=== PATIENT | male | born 1935 | race Native Hawaiian/Other Pacific Islander ===

== ENCOUNTER 2017-07-24 11:25 | Observation (INO) | payer MEDICARE ==
[2017-07-24 12:22] LABS: BASO % 0.2 % (0.0-2.0); EOS # 0.1 K/uL (0.0-0.7); EOS % 0.9 % (0.0-4.0); HEMOGLOBIN 15.4 g/dL (12.0-18.0); LYMPH # 0.5 K/uL (1.0-4.3); LYMPH % 5.6 % (20.0-40.0); MEAN CELL VOLUME 88.9 fL (80.0-94.0); MEAN CORPUSCULAR HEMOGLOBIN 31.5 pg (27.0-31.0); MEAN CORPUSCULAR HGB CONC 35.4 g/dL (33.0-37.0); MEAN PLATELET VOLUME 7.5 fL (7.2-11.7); MONO # 0.4 K/uL (0.0-0.8); MONO % 3.9 % (0.0-10.0); NEUT # 8.3 K/uL (1.8-7.0); NEUT % 89.4 % (50.0-75.0); PLATELET COUNT 318 K/uL (130-400); RED CELL DISTRIBUTION WIDTH 14.5 % (11.5-14.5); WHITE BLOOD COUNT 9.3 K/uL (4.8-10.8)
[2017-07-24 12:34] LABS: ALB/GLOB RATIO 1.3 (1.0-2.1); ALBUMIN 3.5 g/dL (3.5-5.0); CALCIUM 8.9 mg/dl (8.6-10.4)
[2017-07-24 12:37] LABS: INR 1.1; PROTHROMBIN TIME 12.5 SECONDS (9.7-12.2)
--- NOTE | 2017-07-24 12:48 | RAD ---
HISTORY: gen weakness COMPARISON: None available. TECHNIQUE: Chest, one view. FINDINGS: Examination limited by habitus. LUNGS: No focal consolidation. Please note that chest x-ray has limited sensitivity for the detection of pulmonary masses. PLEURA: No significant pleural effusion identified. No definite pneumothorax . CARDIOVASCULAR: Heart size appears within normal limits. OSSEOUS STRUCTURES: Degenerative changes. VISUALIZED UPPER ABDOMEN: Mild elevation of the right hemidiaphragm. OTHER FINDINGS: None. IMPRESSION: No focal consolidation, significant pleural effusion, or definite pneumothorax identified.
--- NOTE | 2017-07-24 12:59 | C.PDOC ---
History Of Present Illness Patient brought to ED for evaluation of generalized weakness for approx 1 week. Patient states he feels very fatigued/sleepy, is so weak he is having difficulty ambulating. He denies chest pain, SOB, abdominal pain, nausea/ vomiting/diarrhea, fever, cough. Patient does admit to chronic B/L LE swelling , [place] [facility] [place] had negative doppler for DVT. Time Seen by Provider: 07/24/17 11:26 Chief Complaint (Nursing): Weakness/Neurological Deficit History Per: Patient, Family History/Exam Limitations: no limitations Onset/Duration Of Symptoms: Days (1 week ) Past Medical History Reviewed: Historical Data, Nursing Documentation, Vital Signs Vital Signs: Last Vital Signs Temp 98 F 07/27/17 08:06 Pulse 59 L 07/27/17 08:06 Resp 20 07/27/17 08:06 BP 141/77 07/27/17 08:06 Pulse Ox 98 07/27/17 08:06 - Medical History PMH: HTN, Hypercholesterolemia, Peripheral Edema Family History: States: No Known Family Hx - Social History Hx Alcohol Use: No Hx Substance Use: No - Immunization History Hx Tetanus Toxoid Vaccination: No Hx Influenza Vaccination: No Hx Pneumococcal Vaccination: No Review Of Systems Except As Marked, All Systems Reviewed And Found Negative. Constitutional: Positive for: Weakness. Negative for: Fever, Chills Cardiovascular: Negative for: Chest Pain, Palpitations Respiratory: Negative for: Cough, Shortness of Breath Gastrointestinal: Negative for: Nausea, Vomiting, Abdominal Pain, Diarrhea Skin: Negative for: Rash Neurological: Negative for: Weakness (no focal weakness), Numbness, Incoordination, Headache, Dizziness Physical Exam - Physical Exam Appears: Well, Non-toxic, No Acute Distress, Other (appears fatigued ) Skin: Warm, Dry, Rash (scattered macular rash on chest, nonvesicular ) Head: Atraumatic, Normacephalic Eye(s): bilateral: Normal Inspection, PERRL, EOMI Oral Mucosa: Moist Cardiovascular: Rhythm Regular (tachycardic ) Respiratory: Normal Breath Sounds, No Rales, No Rhonchi, No Wheezing Gastrointestinal/Abdominal: Normal Exam, Bowel Sounds, Soft, No Tenderness Extremity: Pedal Edema (+2 pitting edema B/L LEs with darkened skin ), No Calf Tenderness, Capillary Refill (< 2 sec all digits ) Pulses: Left Dorsalis Pedis: Normal, Right Dorsalis Pedis: Normal Neurological/Psych: Oriented x3 ED Course And Treatment - Laboratory Results Result Diagrams: 07/24/17 12:16 07/25/17 07:30 ECG: Interpreted By Me, Viewed By Me (atrial flutter 155bpm with AV block, right axis deviation, Q waves II, III, aVF) ECG Interpretation: Abnormal O2 Sat by Pulse Oximetry: 95 (RA) Pulse Ox Interpretation: Normal - Other Rad CXR X-Ray: Viewed By Me, Read By Radiologist Interpretation: Accession No. : [id number]. Patient Name / ID : TORO CALLE / [id number]. Exam Date : 07/24/2017 12:16:54 ( Approved ). Study Comment : Sex / Age : M / 81Y. Creator : Hodan Tian MD. Dictator : Hodan Tian MD. Kitchen Aide : Forensic Anthropologist : Hodan Tian MD. Approver2 : Report Date : 07/24/2017 12:46:50. My Comment : . HISTORY: gen weakness. COMPARISON: None available. TECHNIQUE: Chest, one view. FINDINGS: Examination limited by habitus. LUNGS: No focal consolidation. Please note that chest x-ray has limited sensitivity for the detection of pulmonary masses. PLEURA: No significant pleural effusion identified. No definite pneumothorax . CARDIOVASCULAR: Heart size appears within normal limits. OSSEOUS STRUCTURES: Degenerative changes. VISUALIZED UPPER ABDOMEN: Mild elevation of the right hemidiaphragm. OTHER FINDINGS: None. IMPRESSION: No focal consolidation, significant pleural effusion, or definite pneumothorax identified. - CT Scan/US ct head Other Rad Studies (CT/US): Read By Radiologist, Radiology Report Reviewed CT/US Interpretation: Accession No. : [id number]. Patient Name / ID : TORO CALLE / [id number]. Exam Date : 07/24/2017 12:48:59 ( Approved ). Study Comment : Sex / Age : M / 81Y. Creator : Hodan Tian MD. Dictator : Hodan Tian MD. Kitchen Aide : Forensic Anthropologist : Hodan Tian MD. Approver2 : Report Date : 07/24/2017 13:04:36. My Comment : . PROCEDURE: CT HEAD WITHOUT CONTRAST. HISTORY: gen weakness. COMPARISON: None available. TECHNIQUE: Axial computed tomography images were obtained through the head/brain without intravenous contrast. Radiation dose: Total exam DLP = 953.22 mGy-cm. This CT exam was performed using one or more of the following dose reduction techniques: Automated exposure control, adjustment of the mA and/or kV according to patient size, and/or use of iterative reconstruction technique. FINDINGS: HEMORRHAGE: No intracranial hemorrhage. BRAIN: Diffuse atrophy with prominence of the ventricles and sulci noted. No mass effect or edema. Intracranial atherosclerosis. Scattered periventricular and subcortical white matter hypodensities, which are nonspecific, but often seen with chronic microvascular ischemic disease. Please note that MRI with diffusion imaging is more sensitive in the detection of acute ischemic event. VENTRICLES: No hydrocephalus. CALVARIUM: Unremarkable. PARANASAL SINUSES: Unremarkable as visualized. No significant inflammatory changes. MASTOID AIR CELLS: Unremarkable as visualized. No inflammatory changes. OTHER FINDINGS: None. IMPRESSION: Nonspecific white matter changes. Generalized atrophy. Progress Note: Blood work, EKG, CT head, UA, CXR ordered and reviewed. Patient given IV NS bolus, IV benadryl, IV digoxin (for atrial flutter with RVR + borderline BP). Heparin given for new onset atrial flutter. Reevaluation Time: 16:10 Reassessment Condition: Improved (Patient tachycadic again, appears to be going in and out of rapid atrial flutter - IV cardizem, PO cardizdem ordered.) - Physician Consult Information Physician Contacted: Vinod Núñez Outcome Of Conversation: Discussed patient with PMD, he confirms atrial flutter is new onset - agrees with admission and would like Dr. Tovar for cardiology ( consult entered). Critical Care Time - Critical Care Note Total Time (in mins): 40 Documented critical care: time excludes all time spent performing seperately billable procedures. Disposition - Disposition Disposition: HOSPITALIZED Disposition Time: 14:36 Condition: STABLE - Clinical Impression Clinical Impression: Atrial flutter with rapid ventricular response, Generalized weakness, Dehydration Decision To Admit - Pt Status Changed To: Hospital Disposition Of: Inpatient - Admit Certification Admit to Inpatient:: After my assessment, the patient will require hospitalization for at least two midnights. This is because of the severity of symptoms shown, intensity of services needed, and/or the medical risk in this patient being treated as an outpatient. - InPatient: Physician Admission Certification: I certify that this patient requires 2 or more midnights of care for the following reason:: see notes - . Bed Request Type: Telemetry Admitting Physician: Vinod Núñez Patient Diagnosis: Atrial flutter with rapid ventricular response, Dehydration, Generalized weakness
--- NOTE | 2017-07-24 13:06 | CT ---
PROCEDURE: CT HEAD WITHOUT CONTRAST. HISTORY: gen weakness COMPARISON: None available. TECHNIQUE: Axial computed tomography images were obtained through the head/brain without intravenous contrast. Radiation dose: Total exam DLP = 953.22 mGy-cm. This CT exam was performed using one or more of the following dose reduction techniques: Automated exposure control, adjustment of the mA and/or kV according to patient size, and/or use of iterative reconstruction technique. FINDINGS: HEMORRHAGE: No intracranial hemorrhage. BRAIN: Diffuse atrophy with prominence of the ventricles and sulci noted. No mass effect or edema. Intracranial atherosclerosis. Scattered periventricular and subcortical white matter hypodensities, which are nonspecific, but often seen with chronic microvascular ischemic disease. Please note that MRI with diffusion imaging is more sensitive in the detection of acute ischemic event. VENTRICLES: No hydrocephalus. CALVARIUM: Unremarkable. PARANASAL SINUSES: Unremarkable as visualized. No significant inflammatory changes. MASTOID AIR CELLS: Unremarkable as visualized. No inflammatory changes. OTHER FINDINGS: None. IMPRESSION: Nonspecific white matter changes. Generalized atrophy.
[2017-07-24 13:12] LABS: BANDS 6 % (0-2); EOSINOPHIL 2 % (0-4); LYMPHOCYTE 4 % (20-40); MONOCYTE 2 % (0-10); NEUTROPHIL 86 % (50-75); PLATELET ESTIMATE NORMAL (NORMAL); TOTAL CELLS COUNTED 100
[2017-07-24 13:13] LABS: ANISOCYTOSIS SLIGHT
[2017-07-24] MEDS ORDERED: DiphenhydrAMINE 50 mg/ml Inj IVP STA (13:13)
[2017-07-24] MEDS ORDERED: Sodium Chloride 0.9% 500 ML IV ONE ×2 (13:13→13:20)
[2017-07-24 13:14] LABS: HYPOCHROMIC SLIGHT; POLYCHROMIC SLIGHT
[2017-07-24] MEDS ORDERED: DiphenhydrAMINE 50 mg/ml Inj ONE (13:20)
[2017-07-24 13:22] LABS: CK-MB 2.04 ng/mL (0.0-3.38); TROPONIN I 0.096 ng/mL (0.00-0.120)
[2017-07-24] MEDS ORDERED: Digoxin 500 mcg/2ml (0.5 mg/2ml) Inj IVP STA (14:18)
[2017-07-24 14:21] LABS: URINE BILIRUBIN NEGATIVE (NEGATIVE); URINE BLOOD 1+ (NEGATIVE); URINE CLARITY Clear (Clear); URINE COLOR Yellow (YELLOW); URINE GLUCOSE (UA) NORMAL (Normal); URINE LEUKOCYTE ESTERASE NEG Leu/uL (Negative); URINE PROTEIN NEGATIVE (NEGATIVE); URINE UROBILINOGEN NORMAL mg/dL (0.2-1.0)
[2017-07-24] MEDS ORDERED: Digoxin 500 mcg/2ml (0.5 mg/2ml) Inj ONE (15:02)
[2017-07-24 15:15] VITALS: PULSE 115
--- NOTE | 2017-07-24 19:22 | CP.PCM.CON ---
History of Present Illness - History of Present Illness History of Present Illness: 81 years old [place] male complaining of generalized weakness for the past one week, with vague chest pain. He was found in the ED to have an atrial flutter with 2:1 AV conduction, was given Cardizem IV, Digoxin IV and placed on Metoprolol PO. He is now in a regular sinus rhythm with a first degree AV block on the big data admin. He denies any SOB, palpitation. He is known to have a HPTN, a s/p prostatic cancer, a s/p nephritis 40 years ago. He denies any cigarette smoking, any alcohol abuse, any family history of heart disease. He is allergic to PNC and Tetracycline which gave him a rash in the past. A CT scan of the head was negative for mass, or bleeding. A CXR shows no acute infiltrate. A venous duplex scan of the lower extremities did not reveal any acute DVT. 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.) - MUSCULOSKELETAL/RHEUMATOLOGICAL Hx Osteoarthritis: Yes (left hip and left knee) Hx Unsteady Gait: Yes - GENITOURINARY/GYNECOLOGICAL Hx Prostate Cancer: Yes - PSYCHIATRIC Hx Substance Use: No - SURGICAL HISTORY Hx Surgeries: Yes Hx Appendectomy: Yes Other/Comment: Prostate implant Meds Allergies/Adverse Reactions: Allergies Allergy/AdvReac Type Severity Reaction Status Date / Time Penicillins Allergy Intermediate Verified 07/24/17 11:32 tetracycline Allergy Intermediate Verified 07/24/17 11:32 - Medications Medications: Current Medications Enoxaparin Sodium (Lovenox) 60 mg SC Q12 [facility] Metoprolol Tartrate (Lopressor) 50 mg PO BID [facility] Last Admin: 07/24/17 17:41 Dose: 50 mg Moxifloxacin HCl (Avelox) 400 mg PO DAILY [facility] Last Admin: 07/24/17 17:41 Dose: 400 mg Physical Exam - Constitutional Appears: No Acute Distress, Chronically Ill - Eye Exam Eye Exam: Normal appearance - ENT Exam ENT Exam: Normal Exam - Neck Exam Neck exam: Positive for: Normal Inspection - Respiratory Exam Respiratory Exam: Clear to Auscultation Bilateral, NORMAL BREATHING PATTERN - Cardiovascular Exam Cardiovascular Exam: REGULAR RHYTHM, Systolic Murmur - GI/Abdominal Exam GI & Abdominal Exam: Normal Bowel Sounds, Soft - Rectal Exam Rectal Exam: Deferred - Exam Exam: NORMAL INSPECTION - Extremities Exam Additional comments: Right lower leg mild edema. - Back Exam Back exam: NORMAL INSPECTION - Neurological Exam Neurological exam: Alert, CN II-XII Intact, Oriented x3 - Psychiatric Exam Psychiatric exam: Anxious - Skin Skin Exam: Dry, Intact, Normal Color, Warm Results - Vital Signs Recent Vital Signs: Last Vital Signs Temp 97.8 F 07/24/17 17:42 Pulse 84 07/24/17 17:42 Resp 18 07/24/17 17:42 BP 141/73 07/24/17 17:42 Pulse Ox 100 07/24/17 17:42 - Labs Result Diagrams: 07/24/17 12:16 07/24/17 12:16 Labs: Laboratory Results - last 24 hr 07/24/17 07/24/17 07/24/17 11:45 12:16 12:16 WBC 9.3 RBC 4.90 Hgb 15.4 Hct 43.5 MCV 88.9 MCH 31.5 H MCHC 35.4 RDW 14.5 Plt Count 318 MPV 7.5 Neut % (Auto) 89.4 H Lymph % (Auto) 5.6 L [place] % (Auto) 3.9 Eos % (Auto) 0.9 Baso % (Auto) 0.2 Neut # 8.3 H Lymph # 0.5 L [place] # 0.4 Eos # 0.1 Baso # 0.0 Neutrophils % (Manual) 86 H Band Neutrophils % 6 H Lymphocytes % (Manual) 4 L Monocytes % (Manual) 2 Eosinophils % (Manual) 2 Platelet Estimate Normal Polychromasia Slight Hypochromasia (manual) Slight Anisocytosis (manual) Slight PT INR APTT Sodium 128 L Potassium 4.3 Chloride 94 L Carbon Dioxide 28 Anion Gap 10 BUN 21 H Creatinine 1.8 H Est GFR ( Amer) 44 Est GFR (Non-Af Amer) 36 POC Glucose (mg/dL) 147 H Random Glucose 146 H Calcium 8.9 Total Bilirubin 1.8 H AST 36 ALT 29 Alkaline Phosphatase 40 Total Creatine Kinase 67 CK-MB (Mass) 2.04 Troponin I 0.0960 Total Protein 6.3 Albumin 3.5 Globulin 2.8 Albumin/Globulin Ratio 1.3 Urine Color Urine Clarity Urine pH Ur Specific [place] Urine Protein Urine Glucose (UA) Urine Ketones Urine Blood Urine Nitrate Urine Bilirubin Urine Urobilinogen Ur Leukocyte Esterase Urine WBC (Auto) Urine RBC (Auto) 07/24/17 07/24/17 12:24 14:12 WBC RBC Hgb Hct MCV MCH MCHC RDW Plt Count MPV Neut % (Auto) Lymph % (Auto) [place] % (Auto) Eos % (Auto) Baso % (Auto) Neut # Lymph # [place] # Eos # Baso # Neutrophils % (Manual) Band Neutrophils % Lymphocytes % (Manual) Monocytes % (Manual) Eosinophils % (Manual) Platelet Estimate Polychromasia Hypochromasia (manual) Anisocytosis (manual) PT 12.5 H INR 1.1 APTT 32 Sodium Potassium Chloride Carbon Dioxide Anion Gap BUN Creatinine Est GFR ( Amer) Est GFR (Non-Af Amer) POC Glucose (mg/dL) Random Glucose Calcium Total Bilirubin AST ALT Alkaline Phosphatase Total Creatine Kinase CK-MB (Mass) Troponin I Total Protein Albumin Globulin Albumin/Globulin Ratio Urine Color Yellow Urine Clarity Clear Urine pH 6.0 Ur Specific [place] 1.003 Urine Protein Negative Urine Glucose (UA) Normal Urine Ketones Negative Urine Blood 1+ H Urine Nitrate Negative Urine Bilirubin Negative Urine Urobilinogen Normal Ur Leukocyte Esterase Neg Urine WBC (Auto) < 1 Urine RBC (Auto) 1 Assessment & Plan (1) Paroxysmal atrial flutter Assessment and Plan: To continue Metoprolol and Lovenox. Will check thyroid profile and order an echocardiogram. Status: Acute
[2017-07-24] MEDS: Enoxaparin 60 mg Syringe SC SCH (21:26)
[2017-07-25] MEDS ORDERED: DiphenhydrAMINE 12.5 mg/5 ml LIQ UD (5 ml) PO ONE (00:16)
[2017-07-25 08:01] LABS: ALB/GLOB RATIO 1.2 (1.0-2.1); ALBUMIN 3.3 g/dL (3.5-5.0); ALT/SGPT 33 U/L (21-72); AST/SGOT 26 U/L (17-59); BLOOD UREA NITROGEN 20 mg/dL (9-20); CALCIUM 8.6 mg/dl (8.6-10.4); GFR AFRICAN-AMERICAN > 60; GFR NON-AFRICAN AMERICAN 53
[2017-07-25 08:16] LABS: FREE T4 1.13 ng/dL (0.78-2.19)
[2017-07-25 08:20] LABS: B-TYPE NATRIURETIC PEPTIDE 551 pg/mL (0-900)
[2017-07-25] MEDS: Enoxaparin 60 mg Syringe SC SCH ×2 (10:38→21:22)
--- NOTE | 2017-07-25 13:48 | CP.PCM.HP ---
History of Present Illness - History of Present Illness History of Present Illness: CC: weakness HPI: 81 y/o male seen in ER c/o weakness and feeeling sick. EKG suggestive of atrial flutter. Seen by Cardiology Dr. Tovar. Delia santiago. No fever. NO SOB. No chestpain. Present on Admission - Present on Admission Any Indicators Present on Admission: Yes History of DVT/PE: No History of Uncontrolled Diabetes: No Urinary Catheter: No Decubitus Ulcer Present: No Review of Systems - Constitutional Constitutional: Weakness - EENT Eyes: Blurred Vision Ears: Abnormal Hearing Nose/Mouth/Throat: absent: Nasal Congestion - Cardiovascular Cardiovascular: absent: Chest Pain - Respiratory Respiratory: absent: Dyspnea on Exertion - Gastrointestinal Gastrointestinal: absent: Abdominal Pain - Genitourinary Genitourinary: Change in Urinary Stream - Musculoskeletal Musculoskeletal: Joint Swelling - Integumentary Integumentary: Dry Skin Past Patient History - Infectious Disease Hx of Infectious Diseases: None - Tetanus Immunizations Tetanus Immunization: Unknown - Past Medical History & Family History Past Medical History?: Yes - Past Social History Smoking Status: Never Smoked Alcohol: Occasional Drugs: Denies Home Situation {Lives}: With Family Domestic Violence: Negative - CARDIAC Hx Hypercholesterolemia: Yes Hx Hypertension: Yes Hx Peripheral Edema: Yes - PULMONARY Hx Respiratory Disorders: No - NEUROLOGICAL Hx Neurological Disorder: No - HEENT Hx HEENT Problems: No - RENAL Other/Comment: Hx of nephritis - ENDOCRINE/METABOLIC Hx Endocrine Disorders: No - HEMATOLOGICAL/ONCOLOGICAL Hx Cancer: Yes ( 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.) - INTEGUMENTARY Hx Dermatological Problems: No - MUSCULOSKELETAL/RHEUMATOLOGICAL Hx Osteoarthritis: Yes (left hip and left knee) Hx Unsteady Gait: Yes - GASTROINTESTINAL Hx Gastrointestinal Disorders: No - GENITOURINARY/GYNECOLOGICAL Hx Prostate Cancer: Yes - PSYCHIATRIC Hx Substance Use: No - SURGICAL HISTORY Hx Surgeries: Yes Hx Appendectomy: Yes Other/Comment: Prostate implant - ANESTHESIA Hx Anesthesia: No Meds Allergies/Adverse Reactions: Allergies Allergy/AdvReac Type Severity Reaction Status Date / Time Penicillins Allergy Intermediate Verified 07/24/17 11:32 tetracycline Allergy Intermediate Verified 07/24/17 11:32 Physical Exam - Constitutional Appears: Chronically Ill - Head Exam Head Exam: NORMAL INSPECTION - Eye Exam Eye Exam: Normal appearance Pupil Exam: NORMAL ACCOMODATION - ENT Exam ENT Exam: Normal Exam - Neck Exam Neck exam: Positive for: Normal Inspection - Respiratory Exam Respiratory Exam: NORMAL BREATHING PATTERN - Cardiovascular Exam Cardiovascular Exam: REGULAR RHYTHM - GI/Abdominal Exam GI & Abdominal Exam: Soft - Rectal Exam Rectal Exam: Deferred - Extremities Exam Extremities exam: Positive for: tenderness - Neurological Exam Neurological exam: Alert Results - Vital Signs Recent Vital Signs: Last Vital Signs Temp 97.4 F L 07/25/17 07:30 Pulse 72 07/25/17 07:30 Resp 20 07/25/17 07:30 BP 129/69 07/25/17 07:30 Pulse Ox 99 07/25/17 07:30 - Labs Result Diagrams: 07/24/17 12:16 07/25/17 07:30 Labs: Laboratory Results - last 24 hr 07/24/17 07/24/17 07/25/17 11:45 14:12 07:30 Sodium 134 Potassium 4.1 Chloride 100 Carbon Dioxide 28 Anion Gap 10 BUN 20 Creatinine 1.3 Est GFR ( Amer) > 60 Est GFR (Non-Af Amer) 53 POC Glucose (mg/dL) 147 H Random Glucose 93 Calcium 8.6 Total Bilirubin 0.8 AST 26 ALT 33 Alkaline Phosphatase 38 Troponin I 0.1630 H* NT-Pro-B Natriuret Pep 551 Total Protein 6.0 L Albumin 3.3 L Globulin 2.7 Albumin/Globulin Ratio 1.2 Prostate Specific Ag 0.075 Free T4 TSH 3rd Generation Urine Color Yellow Urine Clarity Clear Urine pH 6.0 Ur Specific [place] 1.003 Urine Protein Negative Urine Glucose (UA) Normal Urine Ketones Negative Urine Blood 1+ H Urine Nitrate Negative Urine Bilirubin Negative Urine Urobilinogen Normal Ur Leukocyte Esterase Neg Urine WBC (Auto) < 1 Urine RBC (Auto) 1 Digoxin 07/25/17 07/25/17 07:30 07:30 Sodium Potassium Chloride Carbon Dioxide Anion Gap BUN Creatinine Est GFR ( Amer) Est GFR (Non-Af Amer) POC Glucose (mg/dL) Random Glucose Calcium Total Bilirubin AST ALT Alkaline Phosphatase Troponin I NT-Pro-B Natriuret Pep Total Protein Albumin Globulin Albumin/Globulin Ratio Prostate Specific Ag Free T4 1.13 TSH 3rd Generation 1.10 Urine Color Urine Clarity Urine pH Ur Specific [place] Urine Protein Urine Glucose (UA) Urine Ketones Urine Blood Urine Nitrate Urine Bilirubin Urine Urobilinogen Ur Leukocyte Esterase Urine WBC (Auto) Urine RBC (Auto) Digoxin 0.8 - EKG Data EKG Interpreted by: ER Physician Assessment & Plan (1) Atrial flutter Status: Acute (2) HTN (hypertension) Status: Chronic (3) Arthritis, hip Status: Chronic - Assessment and Plan (Free Text) Assessment: A?P: Continue medication. Check ECHO. Appreciate Cardiology notes.
[2017-07-25] MEDS ORDERED: Oxycodone/Acetaminophen 5/325 mg Tab PO PRN (14:45)
[2017-07-25 17:56] LABS: CK-MB 3.01 ng/mL (0.0-3.38); TROPONIN I 0.123 ng/mL (0.00-0.120)
[2017-07-25] MEDS ORDERED: DiphenhydrAMINE 50 mg/ml Inj IVP STA (23:56)
[2017-07-26] MEDS ORDERED: DiphenhydrAMINE 50 mg/ml Inj IVP PRN (08:39)
--- NOTE | 2017-07-26 09:15 | CP.PCM.PN ---
Subjective - Date & Time of Evaluation Date of Evaluation: 07/26/17 Time of Evaluation: 08:25 - Subjective Subjective: Pt itching is better; (+) itching/ rash on R leg is healing but dry/ flaking No CO, no SOB, no palpitation, no edema; Tele: (+) now sinus rhythm Objective - Vital Signs/Intake and Output Vital Signs (last 24 hours): Temp Pulse Resp BP Pulse Ox 98.1 F 64 20 126/70 98 07/25/17 23:15 07/25/17 23:15 07/25/17 23:15 07/25/17 23:15 07/25/17 23:15 Intake and Output: 07/26/17 07/26/17 06:59 18:59 Intake Total 560 Output Total 500 Balance 60 - Medications Medications: Current Medications Diphenhydramine HCl (Benadryl) 50 mg IVP Q8 PRN PRN Reason: Itching / Pruritus Stop: 07/29/17 23:59 Enoxaparin Sodium (Lovenox) 60 mg SC Q12 [facility] Last Admin: 07/25/17 21:22 Dose: 60 mg Loratadine (Claritin) 10 mg PO DAILY [facility] Last Admin: 07/25/17 12:36 Dose: 10 mg Metoprolol Tartrate (Lopressor) 50 mg PO BID [facility] Last Admin: 07/25/17 17:40 Dose: 50 mg Moxifloxacin HCl (Avelox) 400 mg PO DAILY [facility] Last Admin: 07/25/17 10:39 Dose: 400 mg Oxycodone/Acetaminophen (Percocet 5/325 Mg Tab) 1 tab PO Q8 PRN PRN Reason: Pain, moderate (4-7) Stop: 07/28/17 14:46 Last Admin: 07/25/17 14:57 Dose: 1 tab - Labs Labs: 07/24/17 12:16 07/25/17 07:30 PT 12.5 SECONDS (9.7-12.2) H 07/24/17 12:24 INR 1.1 07/24/17 12:24 APTT 32 SECONDS (21-34) 07/24/17 12:24 - Constitutional Appears: No Acute Distress - Eye Exam Eye Exam: Normal appearance - ENT Exam ENT Exam: Mucous Membranes Moist - Neck Exam Neck Exam: Full ROM. absent: Lymphadenopathy - Respiratory Exam Respiratory Exam: Clear to Ausculation Bilateral. absent: Decreased Breath Sounds, Rales, Rhonchi, Wheezes - Cardiovascular Exam Cardiovascular Exam: REGULAR RHYTHM, +S1, +S2, Murmur. absent: Gallop, JVD - GI/Abdominal Exam GI & Abdominal Exam: Soft. absent: Tenderness, Mass - Extremities Exam Extremities Exam: Calf Tenderness, Full ROM, Normal Capillary Refill. absent: Joint Swelling, Pedal Edema Assessment and Plan - Assessment and Plan (Free Text) Assessment: Non Q MA; AF - improve Rash 2 Bactrim HTN, Recent R leg Cellulitis Cont meds/ add Plavix
--- NOTE | 2017-07-26 09:47 | VASCLAB ---
PROCEDURE: Lower Extremity Venous Duplex Exam. HISTORY: B/L Leg edema/pain, r/o DVT PRIORS: None. TECHNIQUE: Bilateral common femoral, femoral, popliteal and posterior tibial, peroneal and great saphenous veins were evaluated. Flow was assessed with color Doppler, compressibility, assessment of phasic flow and augmentation response. Report prepared by [employer]CIOUS Jolly FINDINGS: RIGHT: 1. Common Femoral Vein: 1.1. Compressibility - Fully compressible: Thrombus - None : Flow - Phasic: Augmentation -Normal: Reflux - None. 2. Femoral Vein: 2.1. Compressibility - Fully compressible: Thrombus - None : Flow - Phasic: Augmentation -Normal: Reflux - None. 3. Popliteal Vein: 3.1. Compressibility - Fully compressible: Thrombus - None : Flow - Phasic: Augmentation -Normal: Reflux - None. 4. Posterior Tibial Vein: 4.1. Compressibility - Fully compressible: Thrombus - None: Flow - Phasic: Augmentation -Normal: Reflux - None. 5. Peroneal Vein: 5.1. Compressibility - Fully compressible: Thrombus - None: Flow - Phasic: Augmentation -Normal: Reflux - None. 6. Great Saphenous Vein: 6.1. Not visualized. LEFT: 1. Common Femoral Vein: 1.1. Compressibility - Fully compressible: Thrombus - None: Flow - Phasic: Augmentation -Normal: Reflux - None. 2. Femoral Vein: 2.1. Compressibility - Fully compressible: Thrombus - None: Flow - Phasic: Augmentation -Normal: Reflux - None. 3. Popliteal Vein: 3.1. Compressibility - Fully compressible: Thrombus - None : Flow - Phasic: Augmentation -Normal: Reflux - None. 4. Posterior Tibial Vein: 4.1. Compressibility - Fully compressible: Thrombus - None: Flow - Phasic: Augmentation -Normal: Reflux - None. 5. Peroneal Vein: 5.1. Compressibility - Fully compressible: Thrombus - None: Flow - Phasic: Augmentation -Normal: Reflux - None. 6. Great Saphenous Vein: 6.1. Not visualized. OTHER FINDINGS: Right: None significant. Left: None significant. IMPRESSION: Right: No evidence of deep or superficial vein thrombosis of the right lower extremity. Normal valve function noted of the right side. Left: No evidence of deep or superficial vein thrombosis of the left lower extremity. Normal valve function noted of the left side.
[2017-07-26] MEDS: Enoxaparin 60 mg Syringe SC SCH (10:36)
--- NOTE | 2017-07-26 14:57 | CARD ---
APPROVED REPORT EKG Measurement Heart [id number] <Conclusion> Atrial flutter with variable AV block Right superior axis deviation Pulmonary disease pattern Inferior infarct, age undetermined Abnormal ECG
--- NOTE | 2017-07-26 18:40 | CARD ---
APPROVED REPORT EXAM: LIMITED Two-dimensional and M-mode echocardiogram with Doppler and color Doppler. Other Information Quality : TDS LimitedRhythm : Atrial Fibrillation INDICATION Peripheral Edema RISK FACTORS Hyperlipidemia M-Mode DIMENSIONS Left Atrium (MM)3.46 (2.5-4.0cm)IVSd1.20 (0.7-1.1cm) Aortic Root3.01 (2.2-3.7cm)LVDd4.16 (4.0-5.6cm) Aortic Cusp Exc.1.81 (1.5-2.0cm)PWd1.03 (0.7-1.1cm) FS (%) 45 %LVDs2.31 (2.0-3.8cm) LVEF (%)76 (>50%) Mitral Valve MV E Uqoboree28.5cm/sE/A ratio0.0 TDI E/Lateral E'0.0E/Medial E'0.0 Tricuspid Valve TR Peak Actmeovh707ph/sTR Peak Gr.[id number] LEFT VENTRICLE Possible borderline concentric left ventricular hypertrophy. The left ventricular systolic function is normal. The left ventricular ejection fraction is within the normal range. Probably normal LV segmental wall motion. RIGHT VENTRICLE The right ventricular systolic function is normal. AORTIC VALVE The aortic valve is normal in structure. MITRAL VALVE The mitral valve appears normal in structure via subcostal approach. TRICUSPID VALVE The tricuspid valve appears normal in structure via subcostal approach. PULMONIC VALVE The pulmonic valve is not well visualized. GREAT VESSELS The IVC is normal in size and collapses >50% with inspiration. PERICARDIAL EFFUSION There is no gross pericardial effusion. <Conclusion> TECHNICALLY DIFFICULT STUDY - CSS DUE TO POOR ACOUSTIC WINDOWS - DISCUSSED WITH DR. HILTON Possible borderline concentric left ventricular hypertrophy. Grossly preserved bi-ventricular function. No gross pericardial effusion.
--- NOTE | 2017-07-26 21:13 | CP.PCM.PN ---
Subjective - Date & Time of Evaluation Date of Evaluation: 07/26/17 Time of Evaluation: 21:10 - Subjective Subjective: Patient has no complaint of chest pain, SOB, palpitation. Telemetry: RSR. ECG: RSR, q waves in leads II, III, aVF, with no acute ST-T wave change. Echocardiogram: Normal LV wall motion. Patient needs to be on anticoagulation, and a pharmacological stress MPI as an outpatient. Objective - Vital Signs/Intake and Output Vital Signs (last 24 hours): Temp Pulse Resp BP Pulse Ox 97.7 F 63 18 123/63 99 07/26/17 15:53 07/26/17 15:53 07/26/17 15:53 07/26/17 15:53 07/26/17 15:53 Intake and Output: 07/26/17 07/27/17 18:59 06:59 Output Total 900 300 Balance -900 -300 - Medications Medications: Current Medications Clopidogrel Bisulfate (Plavix) 75 mg PO DAILY [facility] Last Admin: 07/26/17 10:36 Dose: 75 mg Diphenhydramine HCl (Benadryl) 50 mg IVP Q8 PRN PRN Reason: Itching / Pruritus Stop: 07/29/17 23:59 Enoxaparin Sodium (Lovenox) 60 mg SC Q12 [facility] Last Admin: 07/26/17 10:36 Dose: 60 mg Loratadine (Claritin) 10 mg PO DAILY [facility] Last Admin: 07/26/17 10:36 Dose: 10 mg Metoprolol Tartrate (Lopressor) 50 mg PO BID [facility] Last Admin: 07/26/17 10:36 Dose: 50 mg Moxifloxacin HCl (Avelox) 400 mg PO DAILY [facility] Last Admin: 07/26/17 10:36 Dose: 400 mg Oxycodone/Acetaminophen (Percocet 5/325 Mg Tab) 1 tab PO Q8 PRN PRN Reason: Pain, moderate (4-7) Stop: 07/28/17 14:46 Last Admin: 07/25/17 14:57 Dose: 1 tab - Labs Labs: 07/24/17 12:16 07/25/17 07:30 PT 12.5 SECONDS (9.7-12.2) H 07/24/17 12:24 INR 1.1 07/24/17 12:24 APTT 32 SECONDS (21-34) 07/24/17 12:24 - Constitutional Appears: No Acute Distress, Chronically Ill - Head Exam Head Exam: NORMAL INSPECTION - Eye Exam Eye Exam: Normal appearance - ENT Exam ENT Exam: Normal Exam - Neck Exam Neck Exam: Normal Inspection - Respiratory Exam Respiratory Exam: Clear to Ausculation Bilateral, NORMAL BREATHING PATTERN - Cardiovascular Exam Cardiovascular Exam: REGULAR RHYTHM - GI/Abdominal Exam GI & Abdominal Exam: Soft, Normal Bowel Sounds - Rectal Exam Rectal Exam: Deferred - Back Exam Back Exam: NORMAL INSPECTION - Neurological Exam Neurological Exam: Alert, Awake, Oriented x3 - Psychiatric Exam Psychiatric exam: Anxious - Skin Skin Exam: Dry, Intact, Normal Color, Warm Assessment and Plan (1) Paroxysmal atrial flutter Assessment & Plan: Needs anticoagulation PO. Status: Resolved (2) Elevated troponin I level Assessment & Plan: Pharmocological stress MPI as an outpatient. Status: Acute
--- NOTE | 2017-07-26 21:54 | CARD ---
APPROVED REPORT EKG Measurement Heart [id number] [place] [id number] <Conclusion> Normal sinus rhythm Left axis deviation Pulmonary disease pattern Inferior infarct, age undetermined cannot be excluded. Abnormal ECG
[2017-07-27 01:24] VITALS: RESP 20
[2017-07-27 08:07] VITALS: BP 141/77; PULSE 59; TEMP 98
--- NOTE | 2017-07-27 09:17 | CP.PCM.PN ---
Subjective - Date & Time of Evaluation Date of Evaluation: 07/27/17 Time of Evaluation: 08:40 - Subjective Subjective: Pt no CP, no SOB, no edema; (+) itching is better no cough; want to go home Objective - Vital Signs/Intake and Output Vital Signs (last 24 hours): Temp Pulse Resp BP Pulse Ox 98 F 59 L 20 141/77 98 07/27/17 08:06 07/27/17 08:06 07/27/17 08:06 07/27/17 08:06 07/27/17 08:06 Intake and Output: 07/27/17 07/27/17 06:59 18:59 Intake Total 240 Output Total 900 Balance -660 - Medications Medications: Current Medications Clopidogrel Bisulfate (Plavix) 75 mg PO DAILY [facility] Last Admin: 07/26/17 10:36 Dose: 75 mg Diphenhydramine HCl (Benadryl) 50 mg IVP Q8 PRN PRN Reason: Itching / Pruritus Stop: 07/29/17 23:59 Enoxaparin Sodium (Lovenox) 60 mg SC Q12 [facility] Last Admin: 07/26/17 10:36 Dose: 60 mg Loratadine (Claritin) 10 mg PO DAILY [facility] Last Admin: 07/26/17 10:36 Dose: 10 mg Metoprolol Tartrate (Lopressor) 50 mg PO BID [facility] Last Admin: 07/26/17 18:37 Dose: 50 mg Moxifloxacin HCl (Avelox) 400 mg PO DAILY [facility] Last Admin: 07/26/17 10:36 Dose: 400 mg Oxycodone/Acetaminophen (Percocet 5/325 Mg Tab) 1 tab PO Q8 PRN PRN Reason: Pain, moderate (4-7) Stop: 07/28/17 14:46 Last Admin: 07/25/17 14:57 Dose: 1 tab - Labs Labs: 07/24/17 12:16 07/25/17 07:30 PT 12.5 SECONDS (9.7-12.2) H 07/24/17 12:24 INR 1.1 07/24/17 12:24 APTT 32 SECONDS (21-34) 07/24/17 12:24 - Constitutional Appears: No Acute Distress - Eye Exam Eye Exam: Normal appearance - ENT Exam ENT Exam: Mucous Membranes Moist - Neck Exam Neck Exam: Full ROM. absent: Lymphadenopathy, Meningismus - Respiratory Exam Respiratory Exam: Clear to Ausculation Bilateral. absent: Rales, Rhonchi, Wheezes - Cardiovascular Exam Cardiovascular Exam: REGULAR RHYTHM, +S1, +S2. absent: Gallop, JVD - GI/Abdominal Exam GI & Abdominal Exam: Soft. absent: Tenderness, Hyperactive Bowel Sounds, Mass - Extremities Exam Extremities Exam: Full ROM, Normal Capillary Refill. absent: Calf Tenderness, Joint Swelling Assessment and Plan - Assessment and Plan (Free Text) Assessment: Non Q CT; New Onset A flutter HTN, DJD w/ Gait dis Do not want Sub acute Will discharge on Coumadin, Metoprolol & ultracet
[2017-07-27] MEDS: Enoxaparin 60 mg Syringe SC SCH (10:03)
[2017-07-30 17:46] VITALS: O2SAT 95
--- NOTE | 2017-08-17 09:46 | CP.PCM.DIS ---
Provider - Provider Date of Admission: 07/24/17 14:36 CC: weak 81 y/o male with HTN, DJD and (+) rash 2 to Bactrim (Tx for leg cellulitis). Patient felt very weak and in ER (+) Atrial flutter and (+) Troponon. Pt was admitted, Attending physician: Vinod Núñez MD Time Spent in preparation of Discharge (in minutes): 12 Hospital Course - Lab Results Lab Results: Most Recent Lab Values WBC 9.3 K/uL (4.8-10.8) 07/24/17 12:16 RBC 4.90 Mil/uL (4.40-5.90) 07/24/17 12:16 Hgb 15.4 g/dL (12.0-18.0) 07/24/17 12:16 Hct 43.5 % (35.0-51.0) 07/24/17 12:16 MCV 88.9 fL (80.0-94.0) 07/24/17 12:16 MCH 31.5 pg (27.0-31.0) H 07/24/17 12:16 MCHC 35.4 g/dL (33.0-37.0) 07/24/17 12:16 RDW 14.5 % (11.5-14.5) 07/24/17 12:16 Plt Count 318 K/uL (130-400) 07/24/17 12:16 MPV 7.5 fL (7.2-11.7) 07/24/17 12:16 Neut % (Auto) 89.4 % (50.0-75.0) H 07/24/17 12:16 Lymph % (Auto) 5.6 % (20.0-40.0) L 07/24/17 12:16 [place] % (Auto) 3.9 % (0.0-10.0) 07/24/17 12:16 Eos % (Auto) 0.9 % (0.0-4.0) 07/24/17 12:16 Baso % (Auto) 0.2 % (0.0-2.0) 07/24/17 12:16 Neut # 8.3 K/uL (1.8-7.0) H 07/24/17 12:16 Lymph # 0.5 K/uL (1.0-4.3) L 07/24/17 12:16 [place] # 0.4 K/uL (0.0-0.8) 07/24/17 12:16 Eos # 0.1 K/uL (0.0-0.7) 07/24/17 12:16 Baso # 0.0 K/uL (0.0-0.2) 07/24/17 12:16 Neutrophils % (Manual) 86 % (50-75) H 07/24/17 12:16 Band Neutrophils % 6 % (0-2) H 07/24/17 12:16 Lymphocytes % (Manual) 4 % (20-40) L 07/24/17 12:16 Monocytes % (Manual) 2 % (0-10) 07/24/17 12:16 Eosinophils % (Manual) 2 % (0-4) 07/24/17 12:16 Platelet Estimate Normal (NORMAL) 07/24/17 12:16 Polychromasia Slight 07/24/17 12:16 Hypochromasia (manual) Slight 07/24/17 12:16 Anisocytosis (manual) Slight 07/24/17 12:16 PT 12.5 SECONDS (9.7-12.2) H 07/24/17 12:24 INR 1.1 07/24/17 12:24 APTT 32 SECONDS (21-34) 07/24/17 12:24 Sodium 134 mmol/L (132-148) 07/25/17 07:30 Potassium 4.1 mmol/L (3.6-5.2) 07/25/17 07:30 Chloride 100 mmol/L (98-107) 07/25/17 07:30 Carbon Dioxide 28 mmol/L (22-30) 07/25/17 07:30 Anion Gap 10 (10-20) 07/25/17 07:30 BUN 20 mg/dL (9-20) 07/25/17 07:30 Creatinine 1.3 mg/dL (0.8-1.5) 07/25/17 07:30 Est GFR ( Amer) > 60 07/25/17 07:30 Est GFR (Non-Af Amer) 53 07/25/17 07:30 POC Glucose (mg/dL) 103 mg/dL (65-110) 07/25/17 16:34 Random Glucose 93 mg/dL (75-110) 07/25/17 07:30 Calcium 8.6 mg/dl (8.6-10.4) 07/25/17 07:30 Total Bilirubin 0.8 mg/dL (0.2-1.3) 07/25/17 07:30 AST 26 U/L (17-59) 07/25/17 07:30 ALT 33 U/L (21-72) 07/25/17 07:30 Alkaline Phosphatase 38 U/L (38-126) 07/25/17 07:30 Total Creatine Kinase 70 U/L (55-170) 07/25/17 17:19 CK-MB (Mass) 3.01 ng/mL (0.0-3.38) 07/25/17 17:19 Troponin I 0.1230 ng/mL (0.00-0.120) H* 07/25/17 17:19 NT-Pro-B Natriuret Pep 551 pg/mL (0-900) 07/25/17 07:30 Total Protein 6.0 g/dL (6.3-8.3) L 07/25/17 07:30 Albumin 3.3 g/dL (3.5-5.0) L 07/25/17 07:30 Globulin 2.7 gm/dL (2.2-3.9) 07/25/17 07:30 Albumin/Globulin Ratio 1.2 (1.0-2.1) 07/25/17 07:30 Prostate Specific Ag 0.075 ng/mL (0.00-4.0) 07/25/17 07:30 Free T4 1.13 ng/dL (0.78-2.19) 07/25/17 07:30 TSH 3rd Generation 1.10 mIU/L (0.46-4.68) 07/25/17 07:30 Urine Color Yellow (YELLOW) 07/24/17 14:12 Urine Clarity Clear (Clear) 07/24/17 14: Urine pH 6.0 (5.0-8.0) 07/24/17 14:12 Ur Specific [place] 1.003 (1.003-1.030) 07/24/17 14:12 Urine Protein Negative mg/dL (NEGATIVE) 07/24/17 14:12 Urine Glucose (UA) Normal mg/dL (Normal) 07/24/17 14:12 Urine Ketones Negative mg/dL (NEGATIVE) 07/24/17 14:12 Urine Blood 1+ (NEGATIVE) H 07/24/17 14:12 Urine Nitrate Negative (NEGATIVE) 07/24/17 14:12 Urine Bilirubin Negative (NEGATIVE) 07/24/17 14:12 Urine Urobilinogen Normal mg/dL (0.2-1.0) 07/24/17 14:12 Ur Leukocyte Esterase Neg Omid/uL (Negative) 07/24/17 14:12 Urine WBC (Auto) < 1 /hpf (0-5) 07/24/17 14:12 Urine RBC (Auto) 1 /hpf (0-3) 07/24/17 14:12 Digoxin 0.8 ng/mL (0.8-2.0) 07/25/17 07:30 - Hospital Course Hospital Course: Pt admitted and was seen by Dr Duvall (Cardio). Patitn treated medically and was advise Stress test in OPD. patient was sent home - slight improved. Discharge Exam - Head Exam Head Exam: NORMAL INSPECTION - Eye Exam Eye Exam: Normal appearance - ENT Exam ENT Exam: Normal Oropharynx - Respiratory Exam Respiratory Exam: Decreased Breath Sounds. absent: Wheezes, Respiratory Distress - Cardiovascular Exam Cardiovascular Exam: Diastolic murmur, +S1, +S2, Systolic Murmur. absent: Gallop, JVD - GI/Abdominal Exam GI & Abdominal Exam: Soft. absent: Hernia, Tenderness - Extremities Exam Extremities exam: full ROM, normal capillary refill, pedal pulses present Discharge Plan - Follow Up Plan Condition: STABLE Disposition: HOME/ ROUTINE Instructions: Warfarin (By mouth), Atrial Flutter (DC), Atrial Fibrillation (DC ), Dehydration (DC), Heart Healthy Diet (DC), Weakness (GEN), Low Sodium Diet ( DC), Hypertension (DC), Hypertension (GEN) Additional Instructions: Will eRx Coumadin 5 mg Referrals: Vinod Núñez MD [Staff Provider] -
== END 2017-07-27 12:06 | disposition home or self-care (01) ==
LOC: C.ER 11:25 → C.9E 14:36 → INTOOBSV 14:36 → C.6T 15:28
PROVIDERS: ADMIT Internal Medicine; ATTEND Internal Medicine
DX: I21.4 Non-ST elevation (NSTEMI) myocardial infarction (principal); I48.92 Unspecified atrial flutter; I45.89 Other specified conduction disorders; L03.115 Cellulitis of right lower limb; E78.00 Pure hypercholesterolemia, unspecified; I10 Essential (primary) hypertension; I44.0 Atrioventricular block, first degree; L27.0 Generalized skin eruption due to drugs and medicaments taken internally; T37.0X5A Adverse effect of sulfonamides, initial encounter; M16.12 Unilateral primary osteoarthritis, left hip; M17.12 Unilateral primary osteoarthritis, left knee; Z85.46 Personal history of malignant neoplasm of prostate; Z88.0 Allergy status to penicillin
CPT/HCPCS: 36415; 70450; 71045; 80053; 80162; 81001; 82550; 82553; 82948; 83880; 84153; 84439; 84443; 84484; 85025; 85610; 85730; 93005; 93306; 93970; 96374; 96375; 99285; G0378; J1160; J1200; J1644; J1650; J7040

== ENCOUNTER 2017-07-30 09:16 | Inpatient (IN) | payer MEDICARE ==
[2017-07-30 09:16] VITALS: PULSE 115
[2017-07-30 10:42] LABS: BASO % 0.5 % (0.0-2.0); EOS # 0.1 K/uL (0.0-0.7); EOS % 1.2 % (0.0-4.0); HEMOGLOBIN 13.5 g/dL (12.0-18.0); LYMPH # 0.6 K/uL (1.0-4.3); LYMPH % 12.4 % (20.0-40.0); MEAN CELL VOLUME 88.9 fL (80.0-94.0); MEAN CORPUSCULAR HEMOGLOBIN 30.1 pg (27.0-31.0); MEAN CORPUSCULAR HGB CONC 33.8 g/dL (33.0-37.0); MEAN PLATELET VOLUME 7.2 fL (7.2-11.7); MONO # 1.1 K/uL (0.0-0.8); MONO % 22.7 % (0.0-10.0); NEUT % 63.2 % (50.0-75.0); NRBC % 0.1 % (0.0-2.0); PLATELET COUNT 255 K/uL (130-400); RBC 4.47 Mil/uL (4.40-5.90); RED CELL DISTRIBUTION WIDTH 14.3 % (11.5-14.5); WHITE BLOOD COUNT 4.7 K/uL (4.8-10.8)
[2017-07-30] MEDS ORDERED: Albuterol-Ipratrop 3 mg / 0.5 (3 ml) UD ONE ×2 (10:48→13:17)
[2017-07-30] MEDS ORDERED: Albuterol-Ipratrop 3 mg / 0.5 (3 ml) UD INH STA ×2 (10:51→13:09)
[2017-07-30 10:53] LABS: INR 1.1; PROTHROMBIN TIME 12.4 SECONDS (9.7-12.2)
[2017-07-30 11:16] LABS: BANDS 4 % (0-2); LYMPHOCYTE 7 % (20-40); MONOCYTE 25 % (0-10); NEUTROPHIL 60 % (50-75); REACTIVE LYMPHOCYTES 4 % (0-0); TOTAL CELLS COUNTED 100
[2017-07-30 11:17] LABS: PLATELET ESTIMATE NORMAL (NORMAL)
[2017-07-30 11:18] LABS: ALB/GLOB RATIO 1.2 (1.0-2.1); ALBUMIN 3.9 g/dL (3.5-5.0); ALT/SGPT 53 U/L (21-72); ANISOCYTOSIS SLIGHT; AST/SGOT 43 U/L (17-59); BLOOD UREA NITROGEN 13 mg/dL (9-20); CALCIUM 8.6 mg/dl (8.6-10.4); GFR AFRICAN-AMERICAN > 60; GFR NON-AFRICAN AMERICAN > 60
[2017-07-30 11:28] LABS: B-TYPE NATRIURETIC PEPTIDE 617 pg/mL (0-900); CK-MB 1.52 ng/mL (0.0-3.38)
--- NOTE | 2017-07-30 11:28 | C.PDOC ---
History Of Present Illness 81yo male, recently admitted to the hospital from Jul 26 to Jul 27 for new onset of atrial-flutter and shortness of breath. Patient was discharged on July 27 and states for the last 2 days, he has been feeling unwell and has been coughing, feeling weak with bodyaches and severe shortness of breath. Patient denies any other medical complaints. Time Seen by Provider: 07/30/17 10:03 Chief Complaint (Nursing): Cough, Cold, Congestion History Per: Patient History/Exam Limitations: no limitations Onset/Duration Of Symptoms: Days (2) Current Symptoms Are (Timing): Still Present Location Of Pain: Diffuse Myalgias Additional History Per: Patient Past Medical History Reviewed: Historical Data, Nursing Documentation, Vital Signs Vital Signs: Last Vital Signs Temp 99 F 07/30/17 09:38 Pulse 84 07/30/17 18:38 Resp 16 07/30/17 18:38 BP 138/74 07/30/17 18:38 Pulse Ox 99 07/30/17 18:38 - Medical History PMH: HTN, Hypercholesterolemia, Peripheral Edema, Chronic Kidney Disease Surgical History: Appendectomy Family History: States: No Known Family Hx - Social History Hx Alcohol Use: No Hx Substance Use: No - Immunization History Hx Tetanus Toxoid Vaccination: No Hx Influenza Vaccination: No Hx Pneumococcal Vaccination: No Review Of Systems Except As Marked, All Systems Reviewed And Found Negative. Constitutional: Positive for: Weakness, Malaise Respiratory: Positive for: Cough, Shortness of Breath Physical Exam - Physical Exam Appears: Non-toxic, Other (uncomfortable, SOB) Skin: Warm, Dry Head: Atraumatic, Normacephalic Eye(s): bilateral: Normal Inspection Neck: Normal ROM, Supple Chest: Symmetrical Cardiovascular: Rhythm Regular Respiratory: No Accessory Muscle Use, Wheezing Gastrointestinal/Abdominal: Normal Exam, Bowel Sounds, Soft, No Tenderness Extremity: Normal ROM, No Tenderness, No Pedal Edema, No Calf Tenderness Neurological/Psych: Oriented x3, Normal Speech, Normal Cognition ED Course And Treatment - Laboratory Results Result Diagrams: 07/30/17 10:32 07/30/17 10:32 ECG: Interpreted By Me, Viewed By Me ECG Rhythm: Sinus Tachycardia Interpretation Of ECG: Q waves in inferior leads. Premature supraventricular complex Rate From EC O2 Sat by Pulse Oximetry: 95 (RA) Pulse Ox Interpretation: Normal - Other Rad CXR X-Ray: Viewed By Me, Read By Radiologist Interpretation: Accession No. : [id number]. Patient Name / ID : TORO CALLE T / [id number]. Exam Date : 07/30/2017 10:30:13 ( Approved ). Study Comment : Sex / Age : M / 81Y. Creator : Norberto Rutledge MD. Dictator : Norberto Rutledge MD. Protocol Manager : Instrument Sterilizer : Norberto Rutledge MD. Approver2 : Report Date : 07/30/2017 11:36:30. My Comment : . PROCEDURE: CHEST RADIOGRAPH, 1 VIEW. HISTORY: SOB, wheezing. COMPARISON: 07/24/2017. FINDINGS: LUNGS: Clear. PLEURA: No pneumothorax or pleural fluid seen. CARDIOVASCULAR: No radiographic findings to suggest acute or significant cardiovascular disease. OSSEOUS STRUCTURES: No significant abnormalities. VISUALIZED UPPER ABDOMEN: Normal. OTHER FINDINGS: None. IMPRESSION: No active disease. No acute/significant interval changes. Progress Note: Patient was treated with Neb x 2, Solu-Medrol IV with minimal improvement. Attempted to call multiple times before I was able to connect with him. Patient was acceped to tele for observation. Medical Decision Making Medical Decision Making: Impression: Shortness of breath Plan: -- Duoneb 3ml INH -- CXR -- Labs Time: 1136 CXR FINDINGS: LUNGS: Clear. PLEURA: No pneumothorax or pleural fluid seen. CARDIOVASCULAR: No radiographic findings to suggest acute or significant cardiovascular disease. OSSEOUS STRUCTURES: No significant abnormalities. VISUALIZED UPPER ABDOMEN: Normal. OTHER FINDINGS: None. IMPRESSION: No active disease. No acute/significant interval changes. Disposition - Disposition Disposition: HOSPITALIZED Disposition Time: 14:57 Condition: FAIR - Clinical Impression Clinical Impression: Dyspnea, Wheezing - PA / [employer]PER[employer]OR / Resident Statement MD/DO has reviewed & agrees with the documentation as recorded. - Scribe Statement The provider has reviewed the documentation as recorded by the Scribe Smiley Lowery Provider Scribe Attestation: All medical record entries made by the Scribe were at my direction and personally dictated by me. I have reviewed the chart and agree that the record accurately reflects my personal performance of the history, physical exam, medical decision making, and the department course for this patient. I have also personally directed, reviewed, and agree with the discharge instructions and disposition.
--- NOTE | 2017-07-30 11:38 | RAD ---
PROCEDURE: CHEST RADIOGRAPH, 1 VIEW HISTORY: SOB, wheezing COMPARISON: 07/24/2017. FINDINGS: LUNGS: Clear. PLEURA: No pneumothorax or pleural fluid seen. CARDIOVASCULAR: No radiographic findings to suggest acute or significant cardiovascular disease. OSSEOUS STRUCTURES: No significant abnormalities. VISUALIZED UPPER ABDOMEN: Normal. OTHER FINDINGS: None. IMPRESSION: No active disease. No acute/significant interval changes.
[2017-07-30 12:54] LABS: SQUAMOUS EPITHIAL < 1 /hpf (0-5); URINE BILIRUBIN NEGATIVE (NEGATIVE); URINE BLOOD NEGATIVE (NEGATIVE); URINE CLARITY Clear (Clear); URINE COLOR Yellow (YELLOW); URINE GLUCOSE (UA) NORMAL (Normal); URINE LEUKOCYTE ESTERASE NEG Leu/uL (Negative); URINE NITRATE NEGATIVE (NEGATIVE); URINE PROTEIN 1+ mg/dL (NEGATIVE)
[2017-07-31] MEDS: Albuterol-Ipratrop 3 mg / 0.5 (3 ml) UD INH SCH ×4 (01:20→19:58)
[2017-07-31] MEDS: Fluticasone-Salmeterol 250-50mcg Diskus INH SCH (08:59)
[2017-07-31 11:38] LABS: BASO % 0.1 % (0.0-2.0); HEMOGLOBIN 14.2 g/dL (12.0-18.0); LYMPH # 0.6 K/uL (1.0-4.3); LYMPH % 14.6 % (20.0-40.0); MEAN CELL VOLUME 89.3 fL (80.0-94.0); MEAN CORPUSCULAR HGB CONC 33.6 g/dL (33.0-37.0); MEAN PLATELET VOLUME 7.2 fL (7.2-11.7); MONO # 1.2 K/uL (0.0-0.8); MONO % 26.2 % (0.0-10.0); NEUT # 2.6 K/uL (1.8-7.0); NEUT % 59.1 % (50.0-75.0); NRBC % 0.1 % (0.0-2.0); PLATELET COUNT 271 K/uL (130-400); RBC 4.73 Mil/uL (4.40-5.90); RED CELL DISTRIBUTION WIDTH 14.6 % (11.5-14.5); WHITE BLOOD COUNT 4.4 K/uL (4.8-10.8)
[2017-07-31 11:40] LABS: INR 1.1
[2017-07-31 12:18] LABS: BLOOD UREA NITROGEN 17 mg/dL (9-20); CALCIUM 8.6 mg/dl (8.6-10.4); GFR AFRICAN-AMERICAN > 60; GFR NON-AFRICAN AMERICAN > 60
[2017-07-31 13:13] LABS: BANDS 3 % (0-2); TOTAL CELLS COUNTED 100
[2017-07-31 13:14] LABS: ANISOCYTOSIS SLIGHT; LYMPHOCYTE 14 % (20-40); MONOCYTE 22 % (0-10); NEUTROPHIL 60 % (50-75); PLATELET ESTIMATE NORMAL (NORMAL); REACTIVE LYMPHOCYTES 1 % (0-0)
--- NOTE | 2017-07-31 15:52 | CP.PCM.HP ---
History of Present Illness - History of Present Illness History of Present Illness: CC: Shortness of Breath\ HPI: 81 y/o male , h/o HTN, Arhtritis hip seen in ER c/o weakness and shorthness of breath. Given IV steroid and Albuterol treatment. C/o some relief. Present on Admission - Present on Admission Any Indicators Present on Admission: Yes History of DVT/PE: No History of Uncontrolled Diabetes: No Urinary Catheter: No Decubitus Ulcer Present: No Review of Systems - Review of Systems All systems: reviewed and no additional remarkable complaints except (weakness, shorthness of breath, unsteady gait and hips pains) Past Patient History - Infectious Disease Hx of Infectious Diseases: None - Tetanus Immunizations Tetanus Immunization: Unknown - Past Medical History & Family History Past Medical History?: Yes - Past Social History Smoking Status: Never Smoked Cigar Use: No Alcohol: None Home Situation {Lives}: With Family - CARDIAC Hx Hypercholesterolemia: Yes Hx Hypertension: Yes Hx Peripheral Edema: Yes - PULMONARY Hx Respiratory Disorders: No - NEUROLOGICAL Hx Neurological Disorder: No - HEENT Hx HEENT Problems: No - RENAL Hx Chronic Kidney Disease: Yes - ENDOCRINE/METABOLIC Hx Endocrine Disorders: No - HEMATOLOGICAL/ONCOLOGICAL Hx Blood Disorders: Yes Hx Cancer: Yes ( 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.) - INTEGUMENTARY Hx Dermatological Problems: No - MUSCULOSKELETAL/RHEUMATOLOGICAL Hx Musculoskeletal Disorders: Yes Hx Osteoarthritis: Yes (left hip and left knee) Hx Unsteady Gait: Yes Other/Comment: walks with a cane - GASTROINTESTINAL Hx Gastrointestinal Disorders: No - GENITOURINARY/GYNECOLOGICAL Hx Genitourinary Disorders: Yes Hx Prostate Cancer: Yes - PSYCHIATRIC Hx Substance Use: No - SURGICAL HISTORY Hx Appendectomy: Yes - ANESTHESIA Hx Anesthesia: No Meds Allergies/Adverse Reactions: Allergies Allergy/AdvReac Type Severity Reaction Status Date / Time sulfamethoxazole Allergy Severe RASH Verified 07/30/17 09:32 [From Bactrim] Penicillins Allergy Intermediate RASH Verified 07/30/17 09:32 tetracycline Allergy Intermediate RASH Verified 07/30/17 09:32 Physical Exam - Constitutional Appears: Chronically Ill - Head Exam Head Exam: NORMAL INSPECTION - Eye Exam Eye Exam: Normal appearance - ENT Exam ENT Exam: Mucous Membranes Dry - Neck Exam Neck exam: Positive for: Normal Inspection - Respiratory Exam Respiratory Exam: Decreased Breath Sounds - Cardiovascular Exam Cardiovascular Exam: REGULAR RHYTHM - GI/Abdominal Exam GI & Abdominal Exam: Soft - Rectal Exam Rectal Exam: Deferred - Extremities Exam Extremities exam: Positive for: tenderness. Negative for: joint swelling - Neurological Exam Neurological exam: Alert - Skin Skin Exam: Dry Results - Vital Signs Recent Vital Signs: Last Vital Signs Temp 97.5 F L 07/30/17 23:17 Pulse 119 H 07/31/17 08:02 Resp 20 07/30/17 23:17 BP 105/63 07/31/17 10:38 Pulse Ox 95 07/31/17 12:00 - Labs Result Diagrams: 07/31/17 11:28 07/31/17 11:28 Labs: Laboratory Results - last 24 hr 07/31/17 07/31/17 07/31/17 11:28 11:28 11:28 WBC 4.4 L RBC 4.73 Hgb 14.2 Hct 42.3 MCV 89.3 MCH 30.0 MCHC 33.6 RDW 14.6 H Plt Count 271 MPV 7.2 Neut % (Auto) 59.1 Lymph % (Auto) 14.6 L [place] % (Auto) 26.2 H Eos % (Auto) 0.0 Baso % (Auto) 0.1 Neut # 2.6 Lymph # 0.6 L [place] # 1.2 H Eos # 0.0 Baso # 0.0 Neutrophils % (Manual) 60 Band Neutrophils % 3 H Lymphocytes % (Manual) 14 L Reactive Lymphs % 1 H Monocytes % (Manual) 22 H Platelet Estimate Normal Anisocytosis (manual) Slight PT 12.0 INR 1.1 Sodium 133 Potassium 4.4 Chloride 97 L Carbon Dioxide 27 Anion Gap 13 BUN 17 Creatinine 0.9 Est GFR ( Amer) > 60 Est GFR (Non-Af Amer) > 60 Random Glucose 104 Calcium 8.6 Assessment & Plan (1) COPD with acute exacerbation Status: Acute (2) Atrial flutter Status: Chronic (3) Arthritis, hip Status: Chronic - Assessment and Plan (Free Text) Assessment: A/P: continue medications. Pulmonary consult Dr. Escamilla
--- NOTE | 2017-07-31 20:16 | CP.PCM.CON ---
History of Present Illness - History of Present Illness History of Present Illness: reason for consultation: cough and shortness of breath Patient is 81-year-old male presented to emergency room complaining of cough and slight shortness of breath. Patient states that he was recently admitted at [facility] for new onset atrial flutter and shortness of breath. Denies fever chills, denies chest pain. Patient statesbreathing isr now. Patient states that recently he developed swelling of the whole body with the itching because of allergic reaction Review of Systems - Review of Systems All systems: reviewed and no additional remarkable complaints except ( sshortness of breath and cough) Past Patient History - Infectious Disease Hx of Infectious Diseases: None - Tetanus Immunizations Tetanus Immunization: Unknown - Past Medical History & Family History Past Medical History?: Yes - Past Social History Smoking Status: Never Smoked Cigar Use: No Alcohol: None Home Situation {Lives}: With Family - CARDIAC Hx Hypercholesterolemia: Yes Hx Hypertension: Yes Hx Peripheral Edema: Yes - PULMONARY Hx Respiratory Disorders: No - NEUROLOGICAL Hx Neurological Disorder: No - HEENT Hx HEENT Problems: No - RENAL Hx Chronic Kidney Disease: Yes - ENDOCRINE/METABOLIC Hx Endocrine Disorders: No - HEMATOLOGICAL/ONCOLOGICAL Hx Blood Disorders: Yes Hx Cancer: Yes ( 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.) - INTEGUMENTARY Hx Dermatological Problems: No - MUSCULOSKELETAL/RHEUMATOLOGICAL Hx Musculoskeletal Disorders: Yes Hx Osteoarthritis: Yes (left hip and left knee) Hx Unsteady Gait: Yes Other/Comment: walks with a cane - GASTROINTESTINAL Hx Gastrointestinal Disorders: No - GENITOURINARY/GYNECOLOGICAL Hx Genitourinary Disorders: Yes Hx Prostate Cancer: Yes - PSYCHIATRIC Hx Substance Use: No - SURGICAL HISTORY Hx Appendectomy: Yes - ANESTHESIA Hx Anesthesia: No Meds Allergies/Adverse Reactions: Allergies Allergy/AdvReac Type Severity Reaction Status Date / Time sulfamethoxazole Allergy Severe RASH Verified 07/30/17 09:32 [From Bactrim] Penicillins Allergy Intermediate RASH Verified 07/30/17 09:32 tetracycline Allergy Intermediate RASH Verified 07/30/17 09:32 - Medications Medications: Current Medications Albuterol/Ipratropium (Duoneb 3 Mg/0.5 Mg (3 Ml) Ud) 3 ml INH RQ6 MARY Last Admin: 07/31/17 19:58 Dose: 3 ml Losartan Potassium (Cozaar) 50 mg PO DAILY [facility] Last Admin: 07/31/17 10:41 Dose: Not Given Metoprolol Tartrate (Lopressor) 25 mg PO BID [facility] Last Admin: 07/31/17 17:42 Dose: 25 mg Fluticasone/Salmeterol (Advair Diskus 250/50) 1 puff INH RQ12 [facility] Last Admin: 07/31/17 08:59 Dose: Not Given Tramadol HCl (Ultram) 50 mg PO TID PRN Last Admin: 07/30/17 18:45 Dose: 50 mg Physical Exam - Head Exam Head Exam: ATRAUMATIC, NORMOCEPHALIC - Eye Exam Eye Exam: Normal appearance - ENT Exam ENT Exam: Mucous Membranes Moist - Neck Exam Neck exam: Positive for: Normal Inspection - Respiratory Exam Respiratory Exam: Clear to Auscultation Bilateral - Cardiovascular Exam Cardiovascular Exam: Irregular Rhythm - GI/Abdominal Exam GI & Abdominal Exam: Normal Bowel Sounds - Extremities Exam Extremities exam: Positive for: normal inspection Results - Vital Signs Recent Vital Signs: Last Vital Signs Temp 98.0 F 07/31/17 16:20 Pulse 95 H 07/31/17 18:23 Resp 20 07/31/17 16:20 BP 142/82 07/31/17 17:42 Pulse Ox 97 07/31/17 16:20 - Labs Result Diagrams: 07/31/17 11:28 07/31/17 11:28 Labs: Laboratory Results - last 24 hr 07/31/17 07/31/17 07/31/17 11:28 11:28 11:28 WBC 4.4 L RBC 4.73 Hgb 14.2 Hct 42.3 MCV 89.3 MCH 30.0 MCHC 33.6 RDW 14.6 H Plt Count 271 MPV 7.2 Neut % (Auto) 59.1 Lymph % (Auto) 14.6 L [place] % (Auto) 26.2 H Eos % (Auto) 0.0 Baso % (Auto) 0.1 Neut # 2.6 Lymph # 0.6 L [place] # 1.2 H Eos # 0.0 Baso # 0.0 Neutrophils % (Manual) 60 Band Neutrophils % 3 H Lymphocytes % (Manual) 14 L Reactive Lymphs % 1 H Monocytes % (Manual) 22 H Platelet Estimate Normal Anisocytosis (manual) Slight PT 12.0 INR 1.1 Sodium 133 Potassium 4.4 Chloride 97 L Carbon Dioxide 27 Anion Gap 13 BUN 17 Creatinine 0.9 Est GFR ( Amer) > 60 Est GFR (Non-Af Amer) > 60 Random Glucose 104 Calcium 8.6 Assessment & Plan (1) COPD with acute exacerbation Status: Acute Comment: continue nebulizer treatment. Add IV steroids. add budesonide (2) Dyspnea Status: Acute
[2017-07-31] MEDS: MethylPREDNISolone 40 mg Vial IVP SCH (21:39)
--- NOTE | 2017-07-31 23:42 | CARD ---
APPROVED REPORT EKG Measurement Heart [id number] VT [id number] <Conclusion> Sinus tachycardia with premature supraventricular complexes Left axis deviation Pulmonary disease pattern Inferior infarct, age undetermined Abnormal ECG
[2017-08-01] MEDS: Albuterol-Ipratrop 3 mg / 0.5 (3 ml) UD INH SCH ×4 (01:10→19:04)
[2017-08-01] MEDS: MethylPREDNISolone 40 mg Vial IVP SCH ×3 (06:47→22:25)
--- NOTE | 2017-08-01 12:25 | CP.PCM.PN ---
Subjective - Date & Time of Evaluation Date of Evaluation: 08/01/17 Time of Evaluation: 12:23 - Subjective Subjective: S: C/o cough and SOB. No fever. Objective - Vital Signs/Intake and Output Vital Signs (last 24 hours): Temp Pulse Resp BP Pulse Ox 97.1 F L 88 20 144/78 100 08/01/17 08:36 08/01/17 08:36 08/01/17 08:36 08/01/17 11:00 08/01/17 08:36 Intake and Output: 08/01/17 08/01/17 06:59 18:59 Intake Total 240 Output Total 300 Balance -60 - Medications Medications: Current Medications Albuterol/Ipratropium (Duoneb 3 Mg/0.5 Mg (3 Ml) Ud) 3 ml INH RQ6 [facility] Last Admin: 08/01/17 08:23 Dose: 3 ml Losartan Potassium (Cozaar) 50 mg PO DAILY [facility] Last Admin: 08/01/17 11:00 Dose: 50 mg Methylprednisolone (Solu-Medrol) 40 mg IVP Q8 [facility] Last Admin: 08/01/17 06:47 Dose: 40 mg Metoprolol Tartrate (Lopressor) 25 mg PO BID [facility] Last Admin: 08/01/17 11:00 Dose: 25 mg Fluticasone/Salmeterol (Advair Diskus 250/50) 1 puff INH RQ12 [facility] Last Admin: 07/31/17 08:59 Dose: Not Given Tramadol HCl (Ultram) 50 mg PO TID PRN Last Admin: 07/30/17 18:45 Dose: 50 mg - Labs Labs: 07/31/17 11:28 07/31/17 11:28 PT 12.0 SECONDS (9.7-12.2) 07/31/17 11:28 INR 1.1 07/31/17 11:28 APTT 34 SECONDS (21-34) 07/30/17 10:32 - Constitutional Appears: Chronically Ill - Head Exam Head Exam: NORMAL INSPECTION - Eye Exam Eye Exam: Normal appearance - ENT Exam ENT Exam: Normal Exam - Neck Exam Neck Exam: Normal Inspection - Respiratory Exam Respiratory Exam: Wheezes - Cardiovascular Exam Cardiovascular Exam: Tachycardia - GI/Abdominal Exam GI & Abdominal Exam: Soft - Rectal Exam Rectal Exam: Deferred - Extremities Exam Extremities Exam: Tenderness - Neurological Exam Neurological Exam: Alert Assessment and Plan (1) COPD with acute exacerbation Status: Acute (2) Atrial flutter Status: Chronic (3) Arthritis, hip Status: Chronic - Assessment and Plan (Free Text) Assessment: A/P Continue medications. PUlmonary and cardiology evaluation
[2017-08-01] MEDS: Fluticasone-Salmeterol 250-50mcg Diskus INH SCH (19:02)
[2017-08-02] MEDS: Albuterol-Ipratrop 3 mg / 0.5 (3 ml) UD INH SCH ×4 (01:34→20:13)
[2017-08-02] MEDS: MethylPREDNISolone 40 mg Vial IVP SCH ×3 (05:34→21:46)
--- NOTE | 2017-08-02 09:10 | CP.PCM.CON ---
History of Present Illness - History of Present Illness History of Present Illness: Reason for consultation: new onset atrial flutter HPI: Patient is 81-year-old male presented to emergency room complaining of cough and slight shortness of breath. Patient states that he was recently admitted at [facility] for new onset atrial flutter and shortness of breath. Denies fever chills, denies chest pain. Patient statesbreathing isr now. Patient states that recently he developed swelling of the whole body with the itching because of allergic reaction Review of Systems - Constitutional Constitutional: Weakness - EENT Ears: Dizziness - Cardiovascular Cardiovascular: Dyspnea on Exertion, Leg Edema, Orthopnea, Pedal Edema - Respiratory Respiratory: Dyspnea - Gastrointestinal Gastrointestinal: absent: Change in Bowel Habits, Vomiting - Musculoskeletal Musculoskeletal: Joint Swelling Additional comments: Right knee pain - Neurological Neurological: Weakness Additional comments: left facial asymmetry Past Patient History - Infectious Disease Hx of Infectious Diseases: None - Tetanus Immunizations Tetanus Immunization: Unknown - Past Medical History & Family History Past Medical History?: Yes - Past Social History Smoking Status: Never Smoked Cigar Use: No Alcohol: None Home Situation {Lives}: With Family - CARDIAC Hx Hypercholesterolemia: Yes Hx Hypertension: Yes Hx Peripheral Edema: Yes - PULMONARY Hx Respiratory Disorders: No - NEUROLOGICAL Hx Neurological Disorder: No - HEENT Hx HEENT Problems: No - RENAL Hx Chronic Kidney Disease: Yes - ENDOCRINE/METABOLIC Hx Endocrine Disorders: No - HEMATOLOGICAL/ONCOLOGICAL Hx Blood Disorders: Yes Hx Cancer: Yes ( 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.) - INTEGUMENTARY Hx Dermatological Problems: No - MUSCULOSKELETAL/RHEUMATOLOGICAL Hx Musculoskeletal Disorders: Yes Hx Osteoarthritis: Yes (left hip and left knee) Hx Unsteady Gait: Yes Other/Comment: walks with a cane - GASTROINTESTINAL Hx Gastrointestinal Disorders: No - GENITOURINARY/GYNECOLOGICAL Hx Genitourinary Disorders: Yes Hx Prostate Cancer: Yes - PSYCHIATRIC Hx Substance Use: No - SURGICAL HISTORY Hx Appendectomy: Yes - ANESTHESIA Hx Anesthesia: No Meds Allergies/Adverse Reactions: Allergies Allergy/AdvReac Type Severity Reaction Status Date / Time sulfamethoxazole Allergy Severe RASH Verified 07/30/17 09:32 [From Bactrim] Penicillins Allergy Intermediate RASH Verified 07/30/17 09:32 tetracycline Allergy Intermediate RASH Verified 07/30/17 09:32 - Medications Medications: Current Medications Albuterol/Ipratropium (Duoneb 3 Mg/0.5 Mg (3 Ml) Ud) 3 ml INH RQ6 [facility] Last Admin: 08/02/17 07:19 Dose: 3 ml Apixaban (Eliquis) 5 mg PO BID [facility] Last Admin: 08/01/17 18:52 Dose: 5 mg Losartan Potassium (Cozaar) 50 mg PO DAILY [facility] Last Admin: 08/01/17 11:00 Dose: 50 mg Methylprednisolone (Solu-Medrol) 40 mg IVP Q8 [facility] Last Admin: 08/02/17 05:34 Dose: 40 mg Metoprolol Tartrate (Lopressor) 25 mg PO BID [facility] Last Admin: 08/01/17 18:55 Dose: 25 mg Fluticasone/Salmeterol (Advair Diskus 250/50) 1 puff INH RQ12 [facility] Last Admin: 08/01/17 19:02 Dose: Not Given Tramadol HCl (Ultram) 50 mg PO TID PRN Last Admin: 07/30/17 18:45 Dose: 50 mg Physical Exam - Head Exam Head Exam: NORMAL INSPECTION - Eye Exam Eye Exam: absent: Scleral icterus - ENT Exam ENT Exam: Mucous Membranes Moist - Neck Exam Neck exam: Positive for: Full Rom. Negative for: Lymphadenopathy - Respiratory Exam Respiratory Exam: Decreased Breath Sounds - Cardiovascular Exam Cardiovascular Exam: REGULAR RHYTHM - GI/Abdominal Exam GI & Abdominal Exam: Soft. absent: Tenderness - Extremities Exam Extremities exam: Negative for: pedal edema, tenderness - Neurological Exam Neurological exam: Oriented x3 Additional comments: left facial weakness Results - Vital Signs Recent Vital Signs: Last Vital Signs Temp 97.6 F 08/01/17 23:15 Pulse 95 H 08/02/17 08:15 Resp 20 08/01/17 23:15 BP 131/67 08/01/17 23:15 Pulse Ox 95 08/01/17 23:15 - Labs Result Diagrams: 07/31/17 11:28 07/31/17 11:28 Assessment & Plan - Assessment and Plan (Free Text) Assessment: Impression: New onset Afib/flutter, paroxysmal r/o CAD COPD Degenerative Joint disease r/o Gout Plan: Rec: ECHO Kvngiscan Start: Eliquis 5mg po bid Bronchodilators - Date & Time Date: 08/01/17 Time: 16:30
--- NOTE | 2017-08-02 09:15 | CP.PCM.PN ---
Subjective - Date & Time of Evaluation Date of Evaluation: 08/02/17 Time of Evaluation: 08:50 - Subjective Subjective: Pt no compalin; Laxmi hip pain is better c/o steroid. No CP, no SOB, no edema; Tele: (+) PAF (+) brassy cough, chest congestion but no mucus Objective - Vital Signs/Intake and Output Vital Signs (last 24 hours): Temp Pulse Resp BP Pulse Ox 97.6 F 95 H 20 131/67 95 08/01/17 23:15 08/02/17 08:15 08/01/17 23:15 08/01/17 23:15 08/01/17 23:15 Intake and Output: 08/02/17 08/02/17 06:59 18:59 Intake Total 980 Output Total 2300 Balance -1320 - Medications Medications: Current Medications Albuterol/Ipratropium (Duoneb 3 Mg/0.5 Mg (3 Ml) Ud) 3 ml INH RQ6 [facility] Last Admin: 08/02/17 07:19 Dose: 3 ml Apixaban (Eliquis) 5 mg PO BID [facility] Last Admin: 08/01/17 18:52 Dose: 5 mg Losartan Potassium (Cozaar) 50 mg PO DAILY [facility] Last Admin: 08/01/17 11:00 Dose: 50 mg Methylprednisolone (Solu-Medrol) 40 mg IVP Q8 [facility] Last Admin: 08/02/17 05:34 Dose: 40 mg Metoprolol Tartrate (Lopressor) 25 mg PO BID [facility] Last Admin: 08/01/17 18:55 Dose: 25 mg Fluticasone/Salmeterol (Advair Diskus 250/50) 1 puff INH RQ12 [facility] Last Admin: 08/01/17 19:02 Dose: Not Given Tramadol HCl (Ultram) 50 mg PO TID PRN Last Admin: 07/30/17 18:45 Dose: 50 mg - Labs Labs: 07/31/17 11:28 07/31/17 11:28 PT 12.0 SECONDS (9.7-12.2) 07/31/17 11:28 INR 1.1 07/31/17 11:28 APTT 34 SECONDS (21-34) 07/30/17 10:32 - Constitutional Appears: No Acute Distress - Eye Exam Eye Exam: Normal appearance - ENT Exam ENT Exam: Mucous Membranes Moist - Neck Exam Neck Exam: Full ROM. absent: Lymphadenopathy, Normal Inspection - Respiratory Exam Respiratory Exam: Decreased Breath Sounds, Rhonchi. absent: Clear to Ausculation Bilateral, Rales, Wheezes - Cardiovascular Exam Cardiovascular Exam: +S1, +S2, Murmur. absent: Gallop, REGULAR RHYTHM - GI/Abdominal Exam GI & Abdominal Exam: Soft. absent: Tenderness - Extremities Exam Extremities Exam: Full ROM, Normal Capillary Refill. absent: Calf Tenderness, Joint Swelling, Pedal Edema Assessment and Plan - Assessment and Plan (Free Text) Assessment: HTN, CAD recent CO, PAF COPD, Exac DJD w/ Gait dis For stress test Cont meds
--- NOTE | 2017-08-02 09:24 | CP.PCM.PN ---
Subjective - Date & Time of Evaluation Date of Evaluation: 08/02/17 Time of Evaluation: 09:23 - Subjective Subjective: no chest pain c/o right knee pain tele- NSR Objective - Vital Signs/Intake and Output Vital Signs (last 24 hours): Temp Pulse Resp BP Pulse Ox 97.2 F L 93 H 20 140/54 L 98 08/02/17 09:13 08/02/17 09:13 08/02/17 09:13 08/02/17 09:13 08/02/17 09:13 Intake and Output: 08/02/17 08/02/17 06:59 18:59 Intake Total 980 Output Total 2300 Balance -1320 - Medications Medications: Current Medications Albuterol/Ipratropium (Duoneb 3 Mg/0.5 Mg (3 Ml) Ud) 3 ml INH RQ6 [facility] Last Admin: 08/02/17 07:19 Dose: 3 ml Apixaban (Eliquis) 5 mg PO BID [facility] Last Admin: 08/01/17 18:52 Dose: 5 mg Losartan Potassium (Cozaar) 50 mg PO DAILY [facility] Last Admin: 08/01/17 11:00 Dose: 50 mg Methylprednisolone (Solu-Medrol) 40 mg IVP Q8 [facility] Last Admin: 08/02/17 05:34 Dose: 40 mg Metoprolol Tartrate (Lopressor) 25 mg PO BID [facility] Last Admin: 08/01/17 18:55 Dose: 25 mg Fluticasone/Salmeterol (Advair Diskus 250/50) 1 puff INH RQ12 [facility] Last Admin: 08/01/17 19:02 Dose: Not Given Tramadol HCl (Ultram) 50 mg PO TID PRN Last Admin: 07/30/17 18:45 Dose: 50 mg - Labs Labs: 07/31/17 11:28 07/31/17 11:28 PT 12.0 SECONDS (9.7-12.2) 07/31/17 11:28 INR 1.1 07/31/17 11:28 APTT 34 SECONDS (21-34) 07/30/17 10:32 Assessment and Plan - Assessment and Plan (Free Text) Assessment: Paroxysmal afib/flutter COPD Plan: Cont AC ECHO Lexiscan
[2017-08-02] MEDS: Fluticasone-Salmeterol 250-50mcg Diskus INH SCH ×2 (10:08→20:13)
--- NOTE | 2017-08-02 14:14 | RAD ---
Chest x-ray single frontal view History: Dyspnea. Comparison: 07/30/2018 Findings: Elevated right hemidiaphragm. Mild venous congestion. Mild left basilar atelectasis. Bilateral hilar prominence. Tortuous aorta. Degenerative changes in the spine with paravertebral osteophytes. Impression: Elevated right hemidiaphragm. Mild venous congestion. Mild left basilar atelectasis. Bilateral hilar prominence.
--- NOTE | 2017-08-02 18:03 | CP.PCM.PN ---
Subjective - Date & Time of Evaluation Date of Evaluation: 08/02/17 Time of Evaluation: 11:30 - Subjective Subjective: Pt was seen and evaluated at bedside. Pt complains of continued shortness of breath on exertion and feels weak and tired today after taking a short walk. Denies chest pain, cough, hemoptysis, fevers and chills. Exam: Lungs: clear to auscultation. A/P: Acute COPD Exacerbation spO2 98% on Room Air Continue Duoneb Q6H Continue Methylprednisolone 40mg IVP Q8H Add Budesonide To go for More scan tomorrow- NPO past midnight 08/02/17 CXR: Elevated R hemidiaphragm. Mild venous congestion. Mild left basilar atelectasis. Bilateral hilar prominence. Objective - Vital Signs/Intake and Output Vital Signs (last 24 hours): Temp Pulse Resp BP Pulse Ox 97.2 F L 93 H 20 149/99 H 98 08/02/17 09:13 08/02/17 09:13 08/02/17 09:13 08/02/17 09:37 08/02/17 09:13 Intake and Output: 08/02/17 08/02/17 06:59 18:59 Intake Total 980 Output Total 2300 Balance -1320 - Medications Medications: Current Medications Albuterol/Ipratropium (Duoneb 3 Mg/0.5 Mg (3 Ml) Ud) 3 ml INH RQ6 [facility] Last Admin: 08/02/17 13:22 Dose: Not Given Apixaban (Eliquis) 5 mg PO BID [facility] Last Admin: 08/02/17 09:38 Dose: 5 mg Losartan Potassium (Cozaar) 50 mg PO DAILY [facility] Last Admin: 08/02/17 09:38 Dose: 50 mg Methylprednisolone (Solu-Medrol) 40 mg IVP Q8 [facility] Last Admin: 08/02/17 14:55 Dose: 40 mg Metoprolol Tartrate (Lopressor) 25 mg PO BID [facility] Last Admin: 08/02/17 09:37 Dose: 25 mg Fluticasone/Salmeterol (Advair Diskus 250/50) 1 puff INH RQ12 [facility] Last Admin: 08/02/17 10:08 Dose: Not Given Tramadol HCl (Ultram) 50 mg PO TID PRN Last Admin: 07/30/17 18:45 Dose: 50 mg - Labs Labs: 07/31/17 11:28 07/31/17 11:28 PT 12.0 SECONDS (9.7-12.2) 07/31/17 11:28 INR 1.1 07/31/17 11:28 APTT 34 SECONDS (21-34) 07/30/17 10:32 Assessment and Plan (1) COPD with acute exacerbation Status: Acute (2) Dyspnea Status: Acute
[2017-08-03] MEDS: MethylPREDNISolone 40 mg Vial IVP SCH ×3 (05:18→22:40)
[2017-08-03] MEDS: Albuterol-Ipratrop 3 mg / 0.5 (3 ml) UD INH SCH ×4 (05:55→20:05)
[2017-08-03 06:06] VITALS: RESP 20
[2017-08-03] MEDS ORDERED: Aminophylline 25 mg/ml Inj ONE (07:37)
[2017-08-03] MEDS: Fluticasone-Salmeterol 250-50mcg Diskus INH SCH ×2 (07:54→20:07)
--- NOTE | 2017-08-03 09:41 | CP.PCM.PN ---
Subjective - Date & Time of Evaluation Date of Evaluation: 08/03/17 Time of Evaluation: 09:25 - Subjective Subjective: Pt no complain; Still thick cough but no mucus. No CP, no SOB, no edma; Hip pain (+) but more tolerable Objective - Vital Signs/Intake and Output Vital Signs (last 24 hours): Temp Pulse Resp BP Pulse Ox 97.9 F 75 20 148/78 95 08/02/17 23:30 08/03/17 00:00 08/02/17 23:30 08/02/17 23:30 08/02/17 23:30 - Medications Medications: Current Medications Albuterol/Ipratropium (Duoneb 3 Mg/0.5 Mg (3 Ml) Ud) 3 ml INH RQ6 [facility] Last Admin: 08/03/17 07:52 Dose: 3 ml Apixaban (Eliquis) 5 mg PO BID [facility] Last Admin: 08/02/17 18:21 Dose: 5 mg Losartan Potassium (Cozaar) 50 mg PO DAILY [facility] Last Admin: 08/02/17 09:38 Dose: 50 mg Methylprednisolone (Solu-Medrol) 40 mg IVP Q8 [facility] Last Admin: 08/03/17 05:18 Dose: 40 mg Metoprolol Tartrate (Lopressor) 25 mg PO BID [facility] Last Admin: 08/02/17 18:25 Dose: 25 mg Pneumococcal Polyvalent Vaccine (Pneumovax 23 Vaccine) 0.5 ml IM .ONCE ONE Stop: 08/03/17 14:01 Fluticasone/Salmeterol (Advair Diskus 250/50) 1 puff INH RQ12 [facility] Last Admin: 08/03/17 07:54 Dose: Not Given Tramadol HCl (Ultram) 50 mg PO TID PRN Last Admin: 07/30/17 18:45 Dose: 50 mg - Labs Labs: 07/31/17 11:28 07/31/17 11:28 PT 12.0 SECONDS (9.7-12.2) 07/31/17 11:28 INR 1.1 07/31/17 11:28 APTT 34 SECONDS (21-34) 07/30/17 10:32 - Constitutional Appears: No Acute Distress - Eye Exam Eye Exam: Normal appearance - ENT Exam ENT Exam: Mucous Membranes Moist - Neck Exam Neck Exam: Full ROM. absent: Thyromegaly - Respiratory Exam Respiratory Exam: Decreased Breath Sounds. absent: Rales, Rhonchi, Wheezes - Cardiovascular Exam Cardiovascular Exam: +S1, +S2. absent: Gallop, REGULAR RHYTHM, Murmur - GI/Abdominal Exam GI & Abdominal Exam: Soft. absent: Tenderness, Organomegaly - Extremities Exam Extremities Exam: Normal Capillary Refill. absent: Calf Tenderness, Joint Swelling, Pedal Edema Assessment and Plan - Assessment and Plan (Free Text) Assessment: COPD, Exac HTN Grn Debility w/ DJD/ Gait dis On Lexiscan Cont meds for now Supportive care
[2017-08-03] MEDS ORDERED: Pneumococcal 23-Valent Vaccine IM ONE (14:00)
[2017-08-03] MEDS ORDERED: Influenza Vaccine 60 mcg/0.5 mL SYR (4YR UP) IM ONE (14:00)
--- NOTE | 2017-08-03 17:14 | CP.PCM.PN ---
Subjective - Date & Time of Evaluation Date of Evaluation: 08/03/17 Time of Evaluation: 13:25 - Subjective Subjective: Pt was seen and evaluated at bedside. Pt had just completed nuclear stress test prior to exam. States he feels short of breath due to the test. SpO2 98% on 3L NC. Complains of dry cough last night. Denies chest pain, hemoptysis, fevers and chills. A/P: Acute COPD Exacerbation Afebrile Continue Duoneb Q6H Continue Methylprednisolone 40mg IVP Q8H Follow up electrolyte levels 08/02/17 CXR: Elevated R hemidiaphragm. Mild venous congestion. Mild left basilar atelectasis. Bilateral hilar prominence. Objective - Vital Signs/Intake and Output Vital Signs (last 24 hours): Temp Pulse Resp BP Pulse Ox 97.9 F 78 20 142/76 95 08/02/17 23:30 08/03/17 08:00 08/02/17 23:30 08/03/17 13:38 08/02/17 23:30 - Medications Medications: Current Medications Albuterol/Ipratropium (Duoneb 3 Mg/0.5 Mg (3 Ml) Ud) 3 ml INH RQ6 [facility] Last Admin: 08/03/17 13:18 Dose: 3 ml Apixaban (Eliquis) 5 mg PO BID [facility] Last Admin: 08/03/17 13:37 Dose: 5 mg Losartan Potassium (Cozaar) 50 mg PO DAILY [facility] Last Admin: 08/03/17 13:37 Dose: 50 mg Methylprednisolone (Solu-Medrol) 40 mg IVP Q8 [facility] Last Admin: 08/03/17 13:40 Dose: 40 mg Metoprolol Tartrate (Lopressor) 25 mg PO BID [facility] Last Admin: 08/03/17 13:38 Dose: 25 mg Fluticasone/Salmeterol (Advair Diskus 250/50) 1 puff INH RQ12 [facility] Last Admin: 08/03/17 07:54 Dose: Not Given Tramadol HCl (Ultram) 50 mg PO TID PRN Last Admin: 07/30/17 18:45 Dose: 50 mg - Labs Labs: 07/31/17 11:28 07/31/17 11:28 PT 12.0 SECONDS (9.7-12.2) 01/20/18 11:28 INR 1.1 07/31/17 11:28 APTT 34 SECONDS (21-34) 07/30/17 10:32 Assessment and Plan (1) COPD with acute exacerbation Status: Acute (2) Dyspnea Status: Acute
[2017-08-03 20:16] LABS: BLOOD UREA NITROGEN 25 mg/dL (9-20); CALCIUM 8.2 mg/dl (8.6-10.4); GFR AFRICAN-AMERICAN > 60; GFR NON-AFRICAN AMERICAN > 60; MAGNESIUM 1.9 mg/dL (1.6-2.3)
[2017-08-04] MEDS: Albuterol-Ipratrop 3 mg / 0.5 (3 ml) UD INH SCH ×4 (01:36→19:23)
[2017-08-04] MEDS: MethylPREDNISolone 40 mg Vial IVP SCH ×3 (05:33→21:28)
--- NOTE | 2017-08-04 06:07 | CARD ---
APPROVED REPORT Protocol: PHARMACOLOGICAL STRESS Test Type: LEXISCAN Test Indications: SOB Medications: LIST SCAN Medical History: SHORTNESS OF BREATH Target HR: 139 bpm Resting ECG: AFIB W/ MVR Resting Heart Rate: 142 bpm Resting Blood Pressure: 118/60mmHg submaximum (85%): 118 bpm TEST SUMMARY [id number]:250.00..[id number]/60.0. INFUSIONDOSE 100:300.00.01.0137/.0. [id number]:[id number]/60.0. PROCEDURE Pharmacologic stress testing was performed using 0.4mg per 5ml of regadenoson given intravenously over 7-10 seconds. Reversal agent aminophyline 125 mg, given intravenously for Dyspnea. POST EXERCISE Reason for Termination: Protocol Completed Target HR: No Max HR: 137 bpm 117% of Maximum Predicted HR: 139 bpm Exercise duration: 00:30 min:sec, 0 Stage Exercise capacity: 1.0METs Max Blood Pressure: 118/60mmHg Blood Pressure response to exercise: normal resting BP - appropriate response Heart Rate response to exercise: appropriate Chest Pain: No, none Angina index: 0 Arrhythmia: No, NONE FROM BASELINE ST Change: No, NONE FROM BASELINE Deviation: 0 mm INTERPRETATION Stress EKG Conclusion: NEGATIVE LEXISCAN STRESS TEST NORMAL BP RESPONS TO LEXISCAN NUCLEAR STUDIES TO BE READ SEPARATELY EXAM: Myocardial Perfusion REST/STRESS Imaging Protocol The imaging protocol used to acquire images was Rest Tc-99m/stress Tc-99m 2 days Rest Spect myocardial perfusion imaging was performed in supine position 45 minutes following the injection of 30.2 mCi of Tc-99 Myoview. Gated Stress Spect was performed 45 minutes after intravenous 32.7 mCi Tc-99 Myoview injection. The images were gated to evaluate regional wall motion and calculate ventricular ejection fraction.Images were reconstructed using backfilter projection method in short horizontal and verticle long axis. Spect slices were generated. RESTING DATA EDV81.76iePM2.60L/min ESV24.00mlMyocardial Gthr984.00g Av. Heart Rate64.00bpm EF70.00% STRESS DATA EDV36.05eoPQ1.80L/min ESV8.00mlMyocardial Mass77.00g EF78.00% Regional WT score at stress:3.00 Regional WM score at stress:0.00 Summed WT score at stress:19.00 Av. Heart Yamf150.00bpmSummed WM score at stress:5.00 LV Perf. Quant 17 Seg. SSS0.00 17 Seg. SRS10.00 17 Seg. SDS0.00 Stress Defect Extent (% LAD)0.00Rest Defect Extent (% LAD)6.90Rev. Defect Extent (% LAD)0.00 Stress Defect Extent (% LCX)0.00Rest Defect Extent (% LCX)25.00Rev. Defect Extent (% LCX)0.00 Stress Defect Extent (% RCA)0.00Rest Defect Extent (% RCA)15.60Rev. Defect Extent (% RCA)0.00 Stress Defect Extent (% SERGIO)0.00Rest Defect Extent (% SERGIO)16.30Rev. Defect Extent (% SERGIO)0.00 IMPRESSION Normal Myocardial Perfusion exercise stress study Left Ventricle LV Size/Shape: The left ventricle is grossly normal size. LV Function:Left ventricle systolic function is normal. The Ejection Fraction is 65-70%. Regional Wall Motion:There is normal left ventricular wall motion. Metabolism/Perfusion Defects: There is no scan evidence of reversible ischemia noted. Conclusion 1. There is no scan evidence of reversible ischemia noted. 2. Left ventricle systolic function is normal. 3. The Ejection Fraction is 65-70%.
[2017-08-04] MEDS: Fluticasone-Salmeterol 250-50mcg Diskus INH SCH ×2 (07:56→19:23)
--- NOTE | 2017-08-04 08:29 | CP.PCM.PN ---
Subjective - Date & Time of Evaluation Date of Evaluation: 08/04/17 Time of Evaluation: 08:20 - Subjective Subjective: Pt no complain but got SOB last night, no CP, (+) dry brassy cough/ wheezing No dec appetite, no n/v, no diarrhea negative Stress test. Objective - Vital Signs/Intake and Output Vital Signs (last 24 hours): Temp Pulse Resp BP Pulse Ox 97.3 F L 78 20 160/77 H 94 L 08/04/17 07:00 08/04/17 07:00 08/04/17 07:00 08/04/17 07:00 08/04/17 07:00 Intake and Output: 08/04/17 08/04/17 06:59 18:59 Intake Total 20 Output Total 1650 Balance -1630 - Medications Medications: Current Medications Albuterol/Ipratropium (Duoneb 3 Mg/0.5 Mg (3 Ml) Ud) [address] [facility] Last Admin: 08/04/17 07:56 Dose: 3 ml Apixaban (Eliquis) 5 mg PO BID [facility] Last Admin: 08/03/17 17:21 Dose: 5 mg Losartan Potassium (Cozaar) 50 mg PO DAILY [facility] Last Admin: 08/03/17 13:37 Dose: 50 mg Methylprednisolone (Solu-Medrol) 40 mg IVP Q8 [facility] Last Admin: 08/04/17 05:33 Dose: 40 mg Metoprolol Tartrate (Lopressor) 25 mg PO BID [facility] Last Admin: 08/03/17 17:21 Dose: 25 mg Fluticasone/Salmeterol (Advair Diskus 250/50) 1 puff INH RQ12 [facility] Last Admin: 08/04/17 07:56 Dose: 1 puff Tramadol HCl (Ultram) 50 mg PO TID PRN Last Admin: 08/03/17 22:40 Dose: 50 mg - Labs Labs: 07/31/17 11:28 08/03/17 19:45 PT 12.0 SECONDS (9.7-12.2) 07/31/17 11:28 INR 1.1 07/31/17 11:28 APTT 34 SECONDS (21-34) 07/30/17 10:32 - Constitutional Appears: No Acute Distress - Eye Exam Eye Exam: Normal appearance - ENT Exam ENT Exam: Mucous Membranes Dry - Neck Exam Neck Exam: Full ROM. absent: Lymphadenopathy - Respiratory Exam Respiratory Exam: Wheezes. absent: Decreased Breath Sounds, Rales, Rhonchi - Cardiovascular Exam Cardiovascular Exam: +S1, +S2. absent: Gallop, REGULAR RHYTHM, JVD - GI/Abdominal Exam GI & Abdominal Exam: Soft. absent: Tenderness, Mass - Extremities Exam Extremities Exam: Full ROM, Normal Capillary Refill. absent: Calf Tenderness, Joint Swelling, Pedal Edema Assessment and Plan - Assessment and Plan (Free Text) Assessment: COPD, Exac HTN; CAD, Gait dis Continue meds; Advise sub acute c/o still w/ Wheezing
--- NOTE | 2017-08-04 17:27 | CP.PCM.PN ---
Subjective - Date & Time of Evaluation Date of Evaluation: 08/04/17 Time of Evaluation: 12:05 - Subjective Subjective: Patient seen and examined Weakness and shortness of breath improving Afebrile No chest pain Getting physical therapy Objective - Vital Signs/Intake and Output Vital Signs (last 24 hours): Temp Pulse Resp BP Pulse Ox 98.2 F 75 20 153/79 H 94 L 08/04/17 15:15 08/04/17 15:15 08/04/17 15:15 08/04/17 15:15 08/04/17 15:15 Intake and Output: 08/04/17 08/04/17 06:59 18:59 Intake Total 20 500 Output Total 1650 650 Balance -1630 -150 - Medications Medications: Current Medications Albuterol/Ipratropium (Duoneb 3 Mg/0.5 Mg (3 Ml) Ud) 3 ml INH RQ6 [facility] Last Admin: 08/04/17 13:18 Dose: 3 ml Apixaban (Eliquis) 5 mg PO BID [facility] Last Admin: 08/04/17 10:46 Dose: 5 mg Losartan Potassium (Cozaar) 50 mg PO DAILY [facility] Last Admin: 08/04/17 10:46 Dose: 50 mg Methylprednisolone (Solu-Medrol) 40 mg IVP Q8 [facility] Last Admin: 08/04/17 13:38 Dose: 40 mg Metoprolol Tartrate (Lopressor) 25 mg PO BID [facility] Last Admin: 08/04/17 10:46 Dose: 25 mg Fluticasone/Salmeterol (Advair Diskus 250/50) 1 puff INH RQ12 [facility] Last Admin: 08/04/17 07:56 Dose: 1 puff Tramadol HCl (Ultram) 50 mg PO TID PRN Last Admin: 08/03/17 22:40 Dose: 50 mg - Labs Labs: 07/31/17 11:28 08/03/17 19:45 PT 12.0 SECONDS (9.7-12.2) 07/31/17 11:28 INR 1.1 07/31/17 11:28 APTT 34 SECONDS (21-34) 07/30/17 10:32 - Head Exam Head Exam: ATRAUMATIC, NORMOCEPHALIC - ENT Exam ENT Exam: Mucous Membranes Moist - Neck Exam Neck Exam: Normal Inspection - Respiratory Exam Respiratory Exam: Clear to Ausculation Bilateral - Cardiovascular Exam Cardiovascular Exam: REGULAR RHYTHM - GI/Abdominal Exam GI & Abdominal Exam: Soft, Normal Bowel Sounds Assessment and Plan (1) COPD with acute exacerbation Assessment & Plan: switch to mouth prednisone continue nebulizer treatment Status: Acute (2) Dyspnea Status: Acute
[2017-08-05] MEDS: Albuterol-Ipratrop 3 mg / 0.5 (3 ml) UD INH SCH ×3 (01:17→13:19)
[2017-08-05] MEDS: MethylPREDNISolone 40 mg Vial IVP SCH ×2 (05:21→13:12)
[2017-08-05] MEDS: Fluticasone-Salmeterol 250-50mcg Diskus INH SCH (08:14)
[2017-08-05 16:20] VITALS: TEMP 98.1; O2SAT 96
[2017-08-05 16:40] VITALS: BP 134/77; PULSE 77
--- NOTE | 2017-08-05 17:32 | CP.PCM.PN ---
Subjective - Date & Time of Evaluation Date of Evaluation: 08/05/17 Time of Evaluation: 09:40 - Subjective Subjective: Pt was seen and evaluated at bedside. Pt resting comfortably. NAD. spO2 95% on 3L NC. Pt had states he awoke feeling short of breath and dizzy today and has a persistent dry cough at night. Requesting to "get out and get some fresh air." Denies chest pain, hemoptysis, fevers and chills. Exam: scant expiratory wheeze A/P: Acute COPD Exacerbation Continue Duoneb Switch to PO Prednisone 08/02/17 CXR: Elevated R hemidiaphragm. Mild venous congestion. Mild left basilar atelectasis. Bilateral hilar prominence. Objective - Vital Signs/Intake and Output Vital Signs (last 24 hours): Temp Pulse Resp BP Pulse Ox 98.1 F 77 20 134/77 96 08/05/17 16:00 08/05/17 16:39 08/05/17 16:00 08/05/17 16:39 08/05/17 16:00 Intake and Output: 08/05/17 08/05/17 06:59 18:59 Intake Total 20 280 Output Total 700 Balance -680 280 - Labs Labs: 07/31/17 11:28 08/03/17 19:45 PT 12.0 SECONDS (9.7-12.2) 07/31/17 11:28 INR 1.1 07/31/17 11:28 APTT 34 SECONDS (21-34) 07/30/17 10:32 Assessment and Plan (1) COPD with acute exacerbation Status: Acute (2) Dyspnea Status: Acute
== END 2017-08-05 16:30 | disposition home or self-care (01) | DRG 191 ==
LOC: C.ER 09:16 → C.9E 14:56 → C.6T 19:01 → OBSVTOIN 08-02 16:10 → C.6T 08-03 22:00
PROVIDERS: ADMIT Internal Medicine; ATTEND Internal Medicine
DX: J44.1 Chronic obstructive pulmonary disease with (acute) exacerbation (principal); I48.92 Unspecified atrial flutter; I48.0 Paroxysmal atrial fibrillation; J98.11 Atelectasis; E78.00 Pure hypercholesterolemia, unspecified; I12.9 Hypertensive chronic kidney disease with stage 1 through stage 4 chronic kidney disease, or unspecified chronic kidney disease; N18.9 Chronic kidney disease, unspecified; Z85.46 Personal history of malignant neoplasm of prostate; M10.9 Gout, unspecified; R26.81 Unsteadiness on feet; I25.2 Old myocardial infarction; R53.81 Other malaise; M16.12 Unilateral primary osteoarthritis, left hip; M17.12 Unilateral primary osteoarthritis, left knee